=== PATIENT | male | born 1945 | race African-American/Black ===

== ENCOUNTER 2020-01-05 11:57 | Inpatient (IN) | payer MEDICARE, MEDICAID, OTHER ==
--- NOTE | 2020-01-05 12:51 | RAD ---
CHEST 1 VIEW: INDICATION: Cough, shortness of breath, and diarrhea. COMPARISON: None. FINDINGS: Lungs are clear. The heart size is accentuated by the exam technique. There is mild tortuosity of t he aorta. There are mild vascular calcifications of the aorta. No pleural effusion or pneumothorax is evident. No acute osseous abnormality is evident. IMPRESSION: No acute cardiopulmonary abnormality. POS: BH
[2020-01-05 13:02] LABS: #Eosinphils 0.2 thou/uL (0.0-0.7); #Lymphocytes 1.2 thou/uL (1.20-3.40); #Monocytes 0.7 thou/uL (0.11-0.59); #Neutrophils 3.4 thou/uL (1.40-6.50); %Basophils 0.9 % (0.0-1.0); %Eosinophils 3.5 % (0.0-10.0); %Lymphocytes 21.8 % (21.0-51.0); %Monocytes 12.1 % (0.0-10.0); %Neutrophils 61.7 % (42.0-75.0); Hemoglobin 15.3 g/dL (14.0-18.0); Mean Corpuscular Hemoglobin 32.2 pg (27.0-31.0); Mean Corpuscular Volume 97.4 fL (78.0-98.0); Mean Platelet Volume 9.5 fL (7.4-10.4); Platelet Count 182 thou/uL (130-400); RBC Distribution Width 11.8 % (11.5-14.5); Red Blood Cell (RBC) Count 4.76 mill/uL (4.70-6.10); White Blood Cell (WBC) Count 5.5 thou/uL (4.8-10.8)
[2020-01-05 13:28] LABS: ALT (SGPT) 9 U/L (8-55); AST (SGOT) 17 U/L (5-34); Albumin 4.1 g/dL (3.4-4.8); Alkaline Phosphatase 97 U/L (40-110); Anion Gap 11 mmol/L (10-20); BUN (Urea Nitrogen) 13 mg/dL (8.4-25.7); Bilirubin, Total 0.7 mg/dL (0.2-1.2); Calc. Creatinine Clearance 0 mL/min (70-130); Calcium 9.7 mg/dL (7.8-10.44); Carbon Dioxide 28 mmol/L (23-31); Chloride 103 mmol/L (98-107); Estimated GFR-MDRD 72; Glucose 91 mg/dL (83-110); Potassium 4.1 mmol/L (3.5-5.1); Protein, Total 7.1 g/dL (5.8-8.1); Sodium 138 mmol/L (136-145)
[2020-01-05] MEDS ORDERED: Nitroglycerin 2% Ointment 1 INCH/1 GM Packet ONE (14:22)
[2020-01-05] MEDS ORDERED: Aspirin Chewable 81 MG TAB ONE (14:22)
[2020-01-05 15:38] LABS: SARS-CoV-2 NAA Rapid Test Not Detected (NotDetected)
[2020-01-05 17:45] LABS: Troponin I 0.044 ng/mL (< 0.028)
[2020-01-05] MEDS ORDERED: Ondansetron ODT 4 MG TAB SL PRN (18:44)
[2020-01-05] MEDS ORDERED: Ondansetron PF 4 MG/2 ML Vial IVP PRN (18:44)
[2020-01-05] MEDS ORDERED: HYDROcodone/Acetaminophen 5/325 mg Tablet PO PRN ×2 (18:44)
[2020-01-05] MEDS ORDERED: Sodium Chloride 0.9% 1,000 ML IV SCH (18:44)
[2020-01-05] MEDS ORDERED: Acetaminophen 325 MG TAB PO PRN (18:44)
--- NOTE | 2020-01-05 19:19 | PDOC.HOSPP ---
- Subjective Encounter Date: 01/05/20 Encounter Time: 16:00 Subjective: This is a 75 year old male patient with history of hypertension who presented to the ER with chest pain that started yesterday. He states it is diffuse, worst when he lays down and better when he sits up and takes a deep breath. He describes the pain as a pressure like sensation that comes and goes. He has not taken anything to relieve the pain. He denies radiation to his arms. He denies pain with exertion or in association with eating. He denies diaphoresis, palpitations, but does report some lightheadedness/dizziness. He reports a sensation of chest congestion and feels that he is unable to cough up any phlegm and is clearing his throat constantly. He denies fevers or chills. He also complains of loose stools the past few days, per nurse he has had 3 Bowel movements today. He states he ate some bad food from [employer] and another fast food restaurant few days ago. He denies nausea or vomiting or abdominal pain. He reports relief with eating raw garlic cloves and honey and drinking garlic water. He has been smoking since age 18, but has cut down to a few cigarettes a day from a pack a day. He reports a stress test in the medical center years ago , but does not recall the results. - Objective Result Diagrams: 01/05/20 12:49 01/05/20 12:49 Hospitalist ROS - Review of Systems Constitutional: denies: fever, chills Eyes: denies: pain, vision change ENT: denies: ear discharge Respiratory: reports: cough, shortness of breath. denies: dry Cardiovascular: reports: chest pain Gastrointestinal: reports: diarrhea. denies: nausea, vomiting, abdominal pain Genitourinary: denies: dysuria, frequency Musculoskeletal: denies: neck pain, shoulder pain Skin: denies: rash, lesions - Exam General Appearance: NAD, awake alert Eye: PERRL, anicteric sclera ENT: normocephalic atraumatic, no oropharyngeal lesions Neck: no JVD Heart: no gallops, no rubs Heart - other findings: systolic murmur heard loudest left second intercostal space Respiratory: no wheezes, no rales, no ronchi Respiratory - other findings: slightly diminished at the bases Gastrointestinal: soft, non-tender, non-distended, normal bowel sounds Extremities: no cyanosis, no clubbing, no edema Skin: normal turgor, no rashes Neurological: cranial nerve grossly intact, normal sensation to touch Musculoskeletal: normal tone, normal strength, no muscle wasting Hosp A/P - Plan Chest X ray: normal This is a 75 year old male with past medical history of hypertension who presents with chest pain that started yesterday Chest pain - possibly secondary to ischemic heart disease vs GERD vs COPD/CHF - EKG shows ST depressions in lateral leads V4-V6, unclear if old or new. Troponins are mildly elevated. Patient has been given aspirin. Will order statin - hold off on beta-rhonda for now in case stress test to be performed - I will give one dose of therapeutic lovenox and have cardiology see patient tomorrow - continue nitro prn for chest pain - obtain BNP Hypertension - patient does not know his home medication - will monitor Code status: full code
[2020-01-05] MEDS ORDERED: Nitroglycerin 0.4 MG TAB (25 Tab Bottle) SL PRN (19:26)
--- NOTE | 2020-01-05 19:29 | PDOC.FMACP ---
Advance Care Planning - Note Participants: patient Summary: Advanced Care Planning was discussed. The diagnosis, prognosis and goals of care were discussed. Appropriate forms and documentation to accomplish the goals of care were discussed. All questions were answered. The Palliative Care Team will be engaged to assist with completion of any outstanding forms that are needed. Patient would like to be full code. Brother will be patient's HCP
[2020-01-05] MEDS ORDERED: Enoxaparin Sodium 80 MG/0.8 ML SYRINGE SC SCH (19:30)
[2020-01-05] MEDS: Atorvastatin Calcium 40 MG TAB PO SCH (20:58)
[2020-01-06 05:11] LABS: #Eosinphils 0.3 thou/uL (0.0-0.7); #Lymphocytes 1.6 thou/uL (1.20-3.40); #Monocytes 0.7 thou/uL (0.11-0.59); #Neutrophils 4.1 thou/uL (1.40-6.50); %Basophils 0.6 % (0.0-1.0); %Lymphocytes 23.3 % (21.0-51.0); %Monocytes 10.8 % (0.0-10.0); %Neutrophils 60.3 % (42.0-75.0); Hemoglobin 13.3 g/dL (14.0-18.0); Mean Corpuscular HGB CONC 32.5 g/dL (32.0-36.0); Mean Corpuscular Hemoglobin 31.3 pg (27.0-31.0); Mean Corpuscular Volume 96.3 fL (78.0-98.0); Mean Platelet Volume 9.6 fL (7.4-10.4); Platelet Count 175 thou/uL (130-400); RBC Distribution Width 11.6 % (11.5-14.5); Red Blood Cell (RBC) Count 4.27 mill/uL (4.70-6.10); White Blood Cell (WBC) Count 6.9 thou/uL (4.8-10.8)
[2020-01-06 05:32] LABS: Anion Gap 11 mmol/L (10-20); BUN (Urea Nitrogen) 11 mg/dL (8.4-25.7); Calc. Creatinine Clearance 78 mL/min (70-130); Calcium 8.9 mg/dL (7.8-10.44); Carbon Dioxide 23 mmol/L (23-31); Chloride 106 mmol/L (98-107); Estimated GFR-MDRD Greater than 90; Glucose 98 mg/dL (83-110); Potassium 3.8 mmol/L (3.5-5.1); Sodium 136 mmol/L (136-145)
[2020-01-06] MEDS: Aspirin 81 mg Enteric Coated Tablet PO SCH (07:36)
[2020-01-06] MEDS ORDERED: Communication Order-Pharmacy FS SCH (09:15)
[2020-01-06] MEDS ORDERED: Etodolac ER 400 mg Tablet PO SCH (09:30)
[2020-01-06] MEDS: Enoxaparin Sodium 80 MG/0.8 ML SYRINGE SC SCH ×2 (09:53→21:55)
--- NOTE | 2020-01-06 10:22 | CON ---
DATE OF CONSULTATION: 01/06/2020 REASON FOR CONSULTATION: Chest pain with elevation of troponins into the indeterminate range. HISTORY OF PRESENT ILLNESS: Mr. Braxton is a very pleasant 75-year-old gentleman, who has been having chest discomfort for several days. He has two different varieties of chest discomfort. One is a feeling of discomfort when he lays down flat and gets better when he sits up. However, he also has another sensation when he tries to walk. He indicates that about a block or less, he will get "tiredness" in his chest and he has to slow down and stop. The patient has a positive family history of heart disease in mother and father. He has history of smoking, unknown cholesterol status. He has history of hypertension. MEDICATIONS AT HOME: Apparently not taking anything routinely, although there was some history of hypertension. REVIEW OF SYSTEMS: CONSTITUTIONAL: No significant weight gain or loss. VISION: No changes. HEARING: No changes. PULMONARY: He also has a cough. CARDIAC: As outlined above. GASTROINTESTINAL: No nausea, vomiting, or diarrhea. SKIN: No rashes. NEUROLOGIC: No unilateral weakness or numbness. PSYCHIATRIC: No unusual depression or anxiety. FAMILY HISTORY: As mentioned. SOCIAL HISTORY: Smokes a few cigarettes per day. PHYSICAL EXAMINATION: GENERAL: This is a pleasant 75-year-old gentleman, alert and oriented. VITAL SIGNS: Blood pressure 149/72 and pulse 86, sinus on the monitor. HEENT: Eyes; sclerae are nonicteric. Mouth, mucous membranes moist. NECK: Supple. No lymphadenopathy. LUNGS: Clear. CARDIAC: Normal S1. Normal S2. There is a 3/6 systolic murmur at the left upper sternal border, radiates to the right upper sternal border in the apex. ABDOMEN: Soft, nontender. EXTREMITIES: Warm, dry. No clubbing or cyanosis. No edema. He has good peripheral pulses in his dorsalis pedis and posterior tibial. PERTINENT LABORATORY DATA: The troponin peak was 0.050. COVID test was negative. EKG shows some T-wave inversions in the lateral leads. ASSESSMENT: 1. Chest pain. Two different varieties, one sounds like it is probably pericardial, but he also has another component this sounds exertional with angina. 2. Cardiac murmur. 3. It sounds like he has some aortic valve component. 4. Hypertension. 5. Smoking. 6. Unknown cholesterol status. PLAN: 1. We will start anti-inflammatories with ibuprofen. We will start low-dose colchicine, increase dose if tolerated from a GI standpoint. 2. Echocardiogram. 3. Recommend cardiac catheterization tomorrow. Discussed risk of stroke, heart attack, iodine allergy, loss of blood supply to leg or kidney resulting in loss of limb or renal function. The additional risk of stenting including vessel perforation, stent thrombosis, stent restenosis were all discussed. He understands and wishes to proceed. Job ID: [id number]
--- NOTE | 2020-01-06 10:24 | PDOC.HOSPP ---
- Subjective Encounter Date: 01/06/20 Encounter Time: 10:17 Subjective: painis epigastricconly lying supine and with breathing - Objective Vital Signs & Weight: Vital Signs (12 hours) Temp Pulse Resp BP BP Pulse Ox 01/06/20 07:40 98.8 F 87 19 149/72 H 99 01/06/20 04:00 98.3 F 75 16 119/64 96 Weight Weight 169 lb 11.2 oz I&O: 01/05/20 01/06/20 01/07/20 06:59 06:59 06:59 Intake Total 1600 Balance 1600 Result Diagrams: 01/06/20 04:49 01/06/20 04:49 Hospitalist ROS - Medication Medications: Active Medications Generic Name Dose Route Start Last Admin Trade Name Yahir PRN Reason Stop Dose Admin Aspirin 81 mg 01/06/20 09:00 01/06/20 07:36 Ecotrin PO 81 mg DAILY RIKY Administration Atorvastatin Calcium 40 mg 01/05/20 21:00 01/05/20 20:58 Lipitor PO 40 mg HS RIKY Administration Enoxaparin Sodium 80 mg 01/06/20 09:00 01/06/20 09:53 Lovenox SC 80 mg 0900,2100 RIKY Administration Sodium Chloride 10 ml 01/05/20 21:00 01/06/20 07:37 Flush - Normal Saline IVF 10 ml Q12HR RIKY Administration - Exam General Appearance: awake alert Neck: no JVD Heart: RRR, no murmur Respiratory: CTAB Gastrointestinal: soft, non-tender, normal bowel sounds Extremities: no edema Hosp A/P (1) Chest pain Code(s): R07.9 - CHEST PAIN, UNSPECIFIED Status: Acute Qualifiers: Chest pain type: unspecified Qualified Code(s): R07.9 - Chest pain, unspecified (2) HTN (hypertension) Code(s): I10 - ESSENTIAL (PRIMARY) HYPERTENSION Status: Chronic Qualifiers: Hypertension type: essential hypertension Qualified Code(s): I10 - Essential (primary) hypertension (3) Elevated troponin I level Code(s): R79.89 - OTHER SPECIFIED ABNORMAL FINDINGS OF BLOOD CHEMISTRY Status : Acute - Plan troponin 0.04+/_atypical to late for stress test.patient had breakfast will schedule stress,discuss with cardiology
[2020-01-06] MEDS: Colchicine 0.6 MG TAB PO SCH ×2 (10:46→21:55)
--- NOTE | 2020-01-06 15:34 | PDOC.EVN ---
Event Note - Event Note Event Note: cardiac cath 01/[address] Arrington
[2020-01-06] MEDS ORDERED: predniSONE 20 MG TAB PO SCH (20:00)
[2020-01-06] MEDS: Atorvastatin Calcium 40 MG TAB PO SCH (21:56)
--- NOTE | 2020-01-06 23:57 | PDOC.HHP ---
Hospitalist HPI - History of Present Illness chest pain History of Present Illness: Note: this is from 01/05, H and P accidentally entered as progress note This is a 75 year old male patient with history of hypertension who presented to the ER with chest pain that started yesterday. He states it is diffuse, worst when he lays down and better when he sits up and takes a deep breath. He describes the pain as a pressure like sensation that comes and goes. He has not taken anything to relieve the pain. He denies radiation to his arms. He denies pain with exertion or in association with eating. He denies diaphoresis, palpitations, but does report some lightheadedness/dizziness. He reports a sensation of chest congestion and feels that he is unable to cough up any phlegm and is clearing his throat constantly. He denies fevers or chills. He also complains of loose stools the past few days, per nurse he has had 3 Bowel movements today. He states he ate some bad food from [employer] and another fast food restaurant few days ago. He denies nausea or vomiting or abdominal pain. He reports relief with eating raw garlic cloves and honey and drinking garlic water. He has been smoking since age 18, but has cut down to a few cigarettes a day from a pack a day. He reports a stress test in the [facility] center years ago , but does not recall the results. ED Course: THe patient presented to the ER with a BP of 178 systolic, rest of vitals were normal. CBC and BMP were unremarkable. Troponin was mildly elevated at 0.035. CHest X ray was normal. EKG showed T wave inversions in the lateral leads. Patient was given aspirin, nitro and 500 ml IV fluid and admitted for further workup. Hospitalist ROS - Review of Systems Constitutional: denies: fever, chills Eyes: denies: pain, vision change Respiratory: reports: shortness of breath. denies: cough (intermittent with throat clearing) Cardiovascular: reports: palpitations. denies: chest pain Gastrointestinal: reports: diarrhea Genitourinary: reports: dysuria, frequency Musculoskeletal: denies: neck pain, shoulder pain Skin: reports: rash, lesions Neurological: denies: weakness, numbness - Medication Medications: Active Medications Generic Name Dose Route Start Last Admin Trade Name Freq PRN Reason Stop Dose Admin Aspirin 81 mg 01/06/20 09:00 01/06/20 07:36 Ecotrin PO 81 mg DAILY RIKY Administration Atorvastatin Calcium 40 mg 01/05/20 21:00 01/06/20 21:56 Lipitor PO 40 mg HS RIKY Administration Colchicine 0.3 mg 01/06/20 09:08 01/06/20 21:55 Colchicine PO 0.3 mg BID RIKY Administration Enoxaparin Sodium 80 mg 01/06/20 09:00 01/06/20 21:55 Lovenox SC 80 mg 0900,2100 RIKY Administration Sodium Chloride 10 ml 01/05/20 21:00 01/06/20 21:56 Flush - Normal Saline IVF 10 ml Q12HR RIKY Administration Hospitalist History - Past Medical History Cardiac: reports: HTN - Past Surgical History Other Surgical History: PMH: Hypertension Past Surgical history: none Social history: patient has smoked from [age]. Smoked one pack a day, reduced to 3 cigarettes daily. No alcohol use, cocaine use, heroin use. He is retired. Brother is a monomer recovery operator. - Family History Other Family History: Family history: both parents had heart disease Allergies: none Medications: patient takes one BP med, but does not know the name of it - Social History Smoking Status: Current every day smoker (smokes 3 cigarettes daily, down from a pack a day, smoking since age of 18) Alcohol: reports: None Drugs: reports: none Living Situation: With Family, Other ( is for past 8 years) - Exam General Appearance: NAD, awake alert Eye: PERRL, anicteric sclera ENT: normocephalic atraumatic, no oropharyngeal lesions Neck: no JVD Heart: RRR Heart - other findings: systolic murmur left second intercostal space Respiratory: CTAB, no wheezes, no rales Gastrointestinal: soft, non-tender, non-distended, normal bowel sounds Extremities: no cyanosis, no clubbing, no edema Skin: normal turgor, no lesions, no rashes Neurological: cranial nerve grossly intact, normal sensation to touch, no focal deficits, no new deficit Musculoskeletal: normal tone, normal strength, no muscle wasting Psychiatric: normal affect, normal behavior, A&O x 3 Hospitalist Results - Labs Result Diagrams: 01/06/20 04:49 01/06/20 04:49 Lab results: WBC 6.9 thou/uL (4.8-10.8) 01/06/20 04:49 Hgb 13.3 g/dL (14.0-18.0) L 01/06/20 04:49 Hct 41.1 % (42.0-52.0) L 01/06/20 04:49 MCV 96.3 fL (78.0-98.0) 01/06/20 04:49 Plt Count 175 thou/uL (130-400) 01/06/20 04:49 Neutrophils % 60.3 % (42.0-75.0) 01/06/20 04:49 Sodium 136 mmol/L (136-145) 01/06/20 04:49 Potassium 3.8 mmol/L (3.5-5.1) 01/06/20 04:49 Chloride 106 mmol/L (98-107) 01/06/20 04:49 Carbon Dioxide 23 mmol/L (23-31) 01/06/20 04:49 BUN 11 mg/dL (8.4-25.7) 01/06/20 04:49 Creatinine 0.92 mg/dL (0.7-1.3) 01/06/20 04:49 Glucose 98 mg/dL (83-110) 01/06/20 04:49 Calcium 8.9 mg/dL (7.8-10.44) 01/06/20 04:49 Total Bilirubin 0.7 mg/dL (0.2-1.2) 01/05/20 12:49 AST 17 U/L (5-34) 01/05/20 12:49 ALT 9 U/L (8-55) 01/05/20 12:49 Alkaline Phosphatase 97 U/L (40-110) 01/05/20 12:49 CK-MB (CK-2) 2.0 ng/mL (0-6.6) 01/05/20 12:49 Troponin I 0.050 ng/mL (< 0.028) H 01/05/20 19:59 B-Natriuretic Peptide 210.2 pg/mL (0-100) H 01/05/20 19:59 Serum Total Protein 7.1 g/dL (5.8-8.1) 01/05/20 12:49 Albumin 4.1 g/dL (3.4-4.8) 01/05/20 12:49 - EKG Interpretation EKG: T wave inversions lateral leads Hospitalist H&P A/P - Plan Plan: Chest X ray: normal This is a 75 year old male with past medical history of hypertension who presents with chest pain that started yesterday Chest pain - possibly secondary to ischemic heart disease vs GERD vs COPD/CHF - EKG shows T wave inversions in lateral leads V4-V6, unclear if old or new. Troponins are mildly elevated. Patient has been given aspirin. Will order statin - hold off on beta-rhonda for now in case stress test to be performed - I will give one dose of therapeutic lovenox and have cardiology see patient tomorrow - continue nitro prn for chest pain - obtain BNP Hypertension - patient does not know his home medication - will monitor Systolic murmur - obtain ECHO Diet: NPO after midnight Code status: full code
[2020-01-07] MEDS: Aspirin 81 mg Enteric Coated Tablet PO SCH (05:36)
[2020-01-07] MEDS: Sodium Chloride 0.9% 1,000 ML IV SCH ×2 (05:37→21:51)
[2020-01-07] MEDS: Colchicine 0.6 MG TAB PO SCH ×2 (05:37→21:50)
[2020-01-07] MEDS ORDERED: Diazepam 5 MG TAB PO SCH (06:00)
[2020-01-07] MEDS ORDERED: Etodolac ER 400 mg Tablet PO SCH (09:00)
[2020-01-07] MEDS ORDERED: Midazolam HCl 2 mg/2 ml Vial ONE (10:07)
[2020-01-07] MEDS ORDERED: Fentanyl 100 MCG/2 ML VIAL ONE (10:07)
[2020-01-07] MEDS ORDERED: Metoprolol Tartrate 5 MG/5 ML VIAL ONE (10:07)
[2020-01-07] MEDS ORDERED: Sodium Chloride 0.9% 200 ML IV PRN (11:04)
[2020-01-07] MEDS ORDERED: Nitroglycerin 0.4 MG TAB (25 Tab Bottle) SL PRN (11:04)
[2020-01-07] MEDS ORDERED: Iopamidol-370 76% 500 ML 1 ML ONE (11:27)
[2020-01-07] MEDS ORDERED: Iopamidol 370 76% 100 ML VIAL ONE (11:46)
--- NOTE | 2020-01-07 11:49 | PDOC.HOSPP ---
- Subjective Encounter Date: 01/07/20 Encounter Time: 11:45 Subjective: f/u for CP and s/p cardiac cath showing multivessel CAD with recommendations for CABG and AVR. No new complaints currently. - Objective Vital Signs & Weight: Vital Signs (12 hours) Temp Pulse Resp BP Pulse Ox 01/07/20 07:45 99.0 F 85 16 151/73 H 96 01/07/20 04:00 98.2 F 91 14 152/94 H 98 Weight Weight 169 lb 11.2 oz I&O: 01/06/20 01/07/20 01/08/20 06:59 06:59 06:59 Intake Total 1600 1300 Balance 1600 1300 Result Diagrams: 01/06/20 04:49 01/06/20 04:49 Additional Labs: Laboratory Tests 01/05/20 01/05/20 01/05/20 12:49 14:20 17:12 Troponin I 0.035 H 0.044 H B-Natriuretic Peptide SARS-CoV-2 Rap RNA(RT-PCR) Not Detected 01/05/20 01/05/20 19:59 19:59 Troponin I 0.050 H B-Natriuretic Peptide 210.2 H SARS-CoV-2 Rap RNA(RT-PCR) Radiology Reviewed by me: Yes (Echo - EF 50-55%, mod , mod AI, TR) EKG Reviewed by me: Yes (Tele - SR) Hospitalist ROS - Medication Medications: Active Medications Generic Name Dose Route Start Last Admin Trade Name Freq PRN Reason Stop Dose Admin Aspirin 81 mg 01/06/20 09:00 01/07/20 05:36 Ecotrin PO 81 mg DAILY RIKY Administration Atorvastatin Calcium 40 mg 01/05/20 21:00 01/06/20 21:56 Lipitor PO 40 mg HS RIKY Administration Colchicine 0.3 mg 01/06/20 09:08 01/07/20 05:37 Colchicine PO 0.3 mg BID RIKY Administration Sodium Chloride 1,000 mls @ 75 mls/hr 01/07/20 06:00 01/07/20 05:37 Normal Saline 0.9% IV 1,000 mls .[id number] RIKY Administration Sodium Chloride 10 ml 01/05/20 21:00 01/06/20 21:56 Flush - Normal Saline IVF 10 ml Q12HR RIKY Administration - Exam General Appearance: NAD, awake alert Eye: PERRL, anicteric sclera ENT: normocephalic atraumatic, no oropharyngeal lesions Neck: supple, symmetric, no JVD, no thyromegaly, no lymphadenopathy Heart: RRR, no gallops, no rubs, normal peripheral pulses, II/IV Heart - other findings: S1, S2 Respiratory: CTAB, no wheezes, no rales, no ronchi, normal chest expansion Gastrointestinal: soft, non-tender, non-distended, normal bowel sounds, no palpable masses Extremities: no cyanosis, no clubbing, no edema Skin: normal turgor, no lesions Neurological: cranial nerve grossly intact, no new deficit Musculoskeletal: normal tone, normal strength Psychiatric: normal affect, A&O x 3 Hosp A/P (1) NSTEMI (non-ST elevated myocardial infarction) Code(s): I21.4 - NON-ST ELEVATION (NSTEMI) MYOCARDIAL INFARCTION Status: Acute Plan: Type II SD, see below for mgmt (2) CAD (coronary artery disease) Code(s): I25.10 - ATHSCL HEART DISEASE OF [place] CORONARY ARTERY W/O ANG PCTRS Status: Chronic Plan: 3v CAD, plan for CABG, continue ASA/Lipitor (3) Aortic stenosis Code(s): I35.0 - NONRHEUMATIC AORTIC (VALVE) STENOSIS Status: Chronic Plan: ? AVR, await CT surgery evaluation (4) Tobacco abuse Code(s): Z72.0 - TOBACCO USE Status: Chronic Plan: Tobacco cessation counseling/resources (5) HTN (hypertension) Code(s): I10 - ESSENTIAL (PRIMARY) HYPERTENSION Status: Chronic Qualifiers: Hypertension type: essential hypertension Qualified Code(s): I10 - Essential (primary) hypertension - Plan out of bed/ambulate, DVT proph w/SCDs Stable currently Continue ASA Continue Lipitor CT surgical consult pending Tobacco cessation resources Carotid sono/CTA chest pending
[2020-01-07] MEDS ORDERED: Diazepam 5 MG TAB PO PRN (13:13)
[2020-01-07] MEDS ORDERED: Communication Order-Pharmacy FS SCH (13:13)
[2020-01-07] MEDS ORDERED: Vancomycin 1.5 GRAM/300 ML BAG 1.5 GM in Premix Bag 1 BAG IVPB SCH (14:30)
--- NOTE | 2020-01-07 15:22 | CON ---
DATE OF CONSULTATION: REASON FOR CONSULTATION: Evaluate for AVR/CABG. HISTORY OF PRESENT ILLNESS: Mr. Braxton is a 75-year-old gentleman, who has been having chest pain and shortness of breath. He got to the point where he could not lay flat anymore and came to the hospital. He has not taken any medications at home recently and was brought in the hospital for further evaluation. PAST MEDICAL HISTORY: 1. Aortic stenosis. 2. Coronary artery disease. 3. Tobacco abuse. 4. Hypertension. PAST SURGICAL HISTORY: None. CURRENT MEDICATIONS: None. ALLERGIES: NONE. SOCIAL HISTORY: He smokes less than a pack of cigarettes a day. REVIEW OF SYSTEMS: 10-point review of systems is performed and negative except as stated above. PHYSICAL EXAMINATION: GENERAL: A well-developed, well-nourished male, resting comfortably in bed. VITAL SIGNS: Height is 6 feet, weight is 169 pounds. BSA is 1.98. Temperature is 99.0, pulse is 85 and regular, and blood pressure 151/73. HEENT: Sclerae nonicteric. Pupils are equal and round bilaterally. NECK: Supple. There are soft carotid bruits bilaterally. CHEST: Clear bilaterally. HEART: Rhythm is regular. He has a soft systolic ejection murmur heard in the right precordium. ABDOMEN: Soft and nontender. EXTREMITIES: No edema. VASCULAR: Palpable carotid, radial, femoral, dorsalis pedis pulses bilaterally. VENOUS: There are no venous varicosities or venous stasis changes. LABORATORY DATA: The patient underwent cardiac catheterization today revealing three-vessel disease. There are critical lesions in his LAD and the first diagonal branch. He also has a 70% stenosis in the circumflex. Echocardiogram has been performed, which shows an ejection fraction of 50% to 55%. His aortic valve velocity is 268. The gradient across his aortic valve is 29 mmHg with a mean gradient of 20. Aortic valve area is not recorded. Aortic valve is calcified and has moderate insufficiency in addition. Chest x-ray shows no dominant lung mass with normal expanded lungs bilaterally. ASSESSMENT AND PLAN: A very pleasant 75-year-old gentleman, who has three-vessel coronary artery disease and [id number] aortic stenosis. I have discussed aortic valve replacement utilizing a bioprosthetic valve and coronary artery bypass grafting x3 with mammary artery to left anterior descending, saphenous vein graft to diagonal and obtuse marginal. He is agreeable to proceed. We will check a CT of the chest and a carotid ultrasound to make plans for surgery on Tuesday. Job ID: [id number]
[2020-01-07] MEDS: Enoxaparin Sodium 80 MG/0.8 ML SYRINGE SC SCH (15:40)
--- NOTE | 2020-01-07 17:09 | CT ---
CT ANGIOGRAM THORAX WITH IV CONTRAST AND 3-D RECONSTRUCTIONS CLINICAL INDICATION: Preoperative evaluation prior to aortic valve replacement. COMPARISON: None FINDINGS: Pulmonary arteries: No filling defects seen to suggest a pulmonary embolus. Aorta: Normal in caliber without evidence of an aortic dissection. Vascular calcifications are seen s cattered in the thoracic aorta. Calcifications aortic valve are noted. Lungs: There is dependent atelectasis at each lung base. No consolidation or pleural fluid is seen. Mediastinum: There is no evidence of lymphadenopathy. Calcifications coronary arteries are present. Thyroid gland: Normal CT appearance where visualized. Osseous structures: Degenerative changes are seen in the thoracic spine Chest wall: No abnormality visualized. Upper abdomen: Within normal limits for phase of imaging. IMPRESSION: 1. No CT evidence of a pulmonary embolus. 2. Thoracic aorta is normal in caliber without aortic dissection. Vascular calcifications are seen in the region of the aortic valve.
--- NOTE | 2020-01-07 17:23 | ULT ---
ULTRASOUND DOPPLER DUPLEX CAROTID: DATE: 01/07/2020 HISTORY: 75-year-old male with carotid stenosis. TECHNIQUE: Grayscale, color-flow, and spectral analysis, of major arteries of neck. FINDINGS: RIGHT: Atherosclerotic plaque:Moderate at carotid bulb extending into proximal internal carotid. Peak systolic and end diastolic velocities: CCA:60 cm/s, 5 cm/s ICA:50 cm/s, 14 cm/s ICA/CCA ratio:0.9 Vertebral artery flow:Antegrade LEFT: Atherosclerotic plaque:Mild at carotid bulb and proximal internal carotid. Peak systolic and end diastolic velocities: CCA:65 cm/s, 10 cm/s ICA:40 cm/s, 15 cm/s ICA/CCA ratio:0.6 Vertebral artery flow:Antegrade IMPRESSION: Atherosclerosis of proximal internal carotid arteries. No evidence of hemodynamically significant stenosis.
[2020-01-07] MEDS: Atorvastatin Calcium 40 MG TAB PO SCH (21:50)
[2020-01-08] MEDS: Colchicine 0.6 MG TAB PO SCH ×2 (08:28→21:46)
[2020-01-08] MEDS: Aspirin 81 mg Enteric Coated Tablet PO SCH (08:28)
[2020-01-08] MEDS: Sodium Chloride 0.9% 1,000 ML IV SCH ×2 (08:30→12:51)
--- NOTE | 2020-01-08 16:52 | PDOC.HOSPP ---
- Subjective Encounter Date: 01/08/20 Encounter Time: 16:30 Subjective: f/u for 3v CAD with plans for CABG and AVR in am. No new complaints currently. - Objective Vital Signs & Weight: Vital Signs (12 hours) Temp Pulse Resp BP Pulse Ox 01/08/20 11:41 98.4 F 80 16 151/86 H 92 L 01/08/20 08:25 98.8 F 86 14 169/87 H 96 01/08/20 08:00 96 Weight Weight 169 lb 11.2 oz I&O: 01/07/20 01/08/20 01/09/20 06:59 06:59 06:59 Intake Total 1300 1700 Balance 1300 1700 Result Diagrams: 01/06/20 04:49 01/06/20 04:49 Additional Labs: Laboratory Tests 01/05/20 01/05/20 01/05/20 12:49 14:20 17:12 Troponin I 0.035 H 0.044 H B-Natriuretic Peptide SARS-CoV-2 Rap RNA(RT-PCR) Not Detected 01/05/20 01/05/20 19:59 19:59 Troponin I 0.050 H B-Natriuretic Peptide 210.2 H SARS-CoV-2 Rap RNA(RT-PCR) Radiology Reviewed by me: Yes (Carotid sono - no significant stenosis) EKG Reviewed by me: Yes (Tele - SR) Hospitalist ROS - Medication Medications: Active Medications Generic Name Dose Route Start Last Admin Trade Name Freq PRN Reason Stop Dose Admin Aspirin 81 mg 01/06/20 09:00 01/08/20 08:28 Ecotrin PO 81 mg DAILY RIKY Administration Atorvastatin Calcium 40 mg 01/05/20 21:00 01/07/20 21:50 Lipitor PO 40 mg HS RIKY Administration Colchicine 0.3 mg 01/06/20 09:08 01/08/20 08:28 Colchicine PO 0.3 mg BID RIKY Administration Sodium Chloride 1,000 mls @ 75 mls/hr 01/07/20 06:00 01/08/20 12:51 Normal Saline 0.9% IV 1,000 mls .[id number] RIKY Administration Sodium Chloride 10 ml 01/05/20 21:00 01/08/20 08:10 Flush - Normal Saline IVF Not Given Q12HR RIKY - Exam General Appearance: NAD, awake alert Eye: PERRL, anicteric sclera ENT: normocephalic atraumatic, no oropharyngeal lesions Neck: supple, symmetric, no JVD, no thyromegaly, no lymphadenopathy Heart: RRR, no gallops, no rubs, normal peripheral pulses Heart - other findings: S1, S2 Respiratory: CTAB, no wheezes, no rales, no ronchi, normal chest expansion Gastrointestinal: soft, non-tender, non-distended, normal bowel sounds, no palpable masses Extremities: no cyanosis, no clubbing, no edema Skin: normal turgor, no lesions Neurological: cranial nerve grossly intact, no new deficit Musculoskeletal: normal tone, normal strength Psychiatric: normal affect, A&O x 3 Hosp A/P (1) NSTEMI (non-ST elevated myocardial infarction) Code(s): I21.4 - NON-ST ELEVATION (NSTEMI) MYOCARDIAL INFARCTION Status: Acute Plan: See below, continue ASA/Lipitor/Nitro (2) CAD (coronary artery disease) Code(s): I25.10 - ATHSCL HEART DISEASE OF [place] CORONARY ARTERY W/O ANG PCTRS Status: Chronic Plan: See above, plan for CABG in am (3) Aortic stenosis Code(s): I35.0 - NONRHEUMATIC AORTIC (VALVE) STENOSIS Status: Chronic Plan: Plan for bioprosthetic AVR in am (4) Tobacco abuse Code(s): Z72.0 - TOBACCO USE Status: Chronic (5) HTN (hypertension) Code(s): I10 - ESSENTIAL (PRIMARY) HYPERTENSION Status: Chronic Qualifiers: Hypertension type: essential hypertension Qualified Code(s): I10 - Essential (primary) hypertension - Plan social services coordinator, out of bed/ambulate, DVT proph w/SCDs Stable currently Continue ASA Continue Lipitor CT surgical consult appreciated Plan for CABG/AVR in am Tobacco cessation resources
[2020-01-08] MEDS: Atorvastatin Calcium 40 MG TAB PO SCH (21:44)
[2020-01-09] MEDS ORDERED: EPINEPHrine 1 MG/ML AMP ONE (06:33)
[2020-01-09] MEDS ORDERED: Bupivacaine PF 0.5% 30 ML VIAL ONE (06:33)
[2020-01-09] MEDS ORDERED: Albumin 5% 500 ML ONE (06:33)
[2020-01-09] MEDS ORDERED: Midazolam HCl 5 mg/5 ml Vial ONE (06:36)
[2020-01-09] MEDS ORDERED: Midazolam HCl 2 mg/2 ml Vial ONE (06:36)
[2020-01-09] MEDS ORDERED: Fentanyl 100 MCG/2 ML VIAL ONE (06:36)
[2020-01-09] MEDS ORDERED: Vecuronium 10 MG VIAL ONE ×2 (06:37→09:20)
[2020-01-09] MEDS ORDERED: Dexmedetomidine 200 MCG/2 ML VIAL ONE (06:37)
[2020-01-09] MEDS ORDERED: Heparin 10,000 UNITS/1 ML VIAL 30,000 UNITS in Sodium Chloride 0.9% 1,000 ML FS SCH (06:45)
[2020-01-09] MEDS ORDERED: Vancomycin 1.5 GRAM/300 ML BAG ONE (07:01)
[2020-01-09] MEDS ORDERED: CEFAZOLIN 1 GM VIAL SLOW IVP SCH (07:30)
[2020-01-09] MEDS ORDERED: Sodium Chloride 0.9% 10 ML ONE (07:35)
[2020-01-09] MEDS ORDERED: Papaverine 60 MG/2 ML VIAL ONE (09:20)
[2020-01-09] MEDS ORDERED: Esmolol 100 MG/10 ML VIAL ONE (09:20)
[2020-01-09] MEDS ORDERED: Aminocaproic Acid 5 GM/20 ML VIAL ONE (09:20)
[2020-01-09] MEDS ORDERED: Lidocaine 2% PF 5 ML VIAL ONE (09:20)
[2020-01-09] MEDS ORDERED: Ondansetron PF 4 MG/2 ML Vial ONE (09:20)
[2020-01-09] MEDS ORDERED: Lidocaine 1% PF 5 ML VIAL ONE ×2 (09:20)
[2020-01-09] MEDS ORDERED: Thrombin 5000 UNITS/5 ML VIAL ONE (09:20)
[2020-01-09] MEDS ORDERED: Glycopyrrolate 0.2 MG/ML 5 ML SYRINGE ONE (09:20)
[2020-01-09] MEDS ORDERED: Heparin 5,000 UNITS/ML VIAL ONE (09:20)
[2020-01-09] MEDS ORDERED: Protamine Sulfate 250 MG/25 ML VIAL ONE (09:20)
[2020-01-09] MEDS ORDERED: Calcium Chloride 1 GM/10 ML Abboject SYRINGE ONE (09:20)
[2020-01-09] MEDS ORDERED: Magnesium Sulfate 1 GM/2 ML VIAL ONE (09:20)
[2020-01-09] MEDS ORDERED: Ketorolac Tromethamine 30 MG/ML VIAL ONE (09:20)
[2020-01-09] MEDS ORDERED: Potassium Chloride 60 MEQ/30 ML VIAL ONE (09:20)
[2020-01-09] MEDS ORDERED: Nitroglycerin 50 MG/250 ML BOT ONE (09:20)
[2020-01-09] MEDS ORDERED: PHENYLEPHRINE-NS 100 MCG/ML 10 ML SYRINGE ONE (09:20)
[2020-01-09] MEDS ORDERED: Cardioplegic Soln 1,000 ML BAG ONE (09:20)
[2020-01-09] MEDS ORDERED: Sodium Bicarb 50 MEQ/50 ML Abboject 8.4% SYRINGE ONE (09:20)
[2020-01-09] MEDS ORDERED: Heparin 30,000 units/30 ml VIAL ONE (09:20)
[2020-01-09] MEDS ORDERED: Insulin Regular 300 UNITS/3 ML VIAL ONE (09:51)
[2020-01-09] MEDS ORDERED: Promethazine HCl 25 MG/ML VIAL IM PRN (11:41)
[2020-01-09] MEDS ORDERED: Bisacodyl 10 MG SUPP PR PRN (11:41)
[2020-01-09] MEDS ORDERED: Ondansetron PF 4 MG/2 ML Vial IVP PRN (11:41)
[2020-01-09] MEDS ORDERED: Norepinephrine 8 MG/0.9% NS 250 ML IVPB PRN (11:41)
[2020-01-09] MEDS ORDERED: Bisacodyl 5 MG TAB PO PRN (11:41)
[2020-01-09] MEDS ORDERED: Hetastarch 6% 500 ML 500 ML IVPB PRN (11:41)
[2020-01-09] MEDS ORDERED: Mag-Al 1200 mg/1200 mg/30 ML UDCUP PO PRN (11:41)
[2020-01-09] MEDS ORDERED: Morphine 2 MG/ML VIAL SLOW IVP PRN (11:41)
[2020-01-09] MEDS ORDERED: Nitroglycerin 50 MG/250 ML BOT 250 ML IVPB PRN (11:41)
[2020-01-09] MEDS ORDERED: Guaifenesin DM 100-10/5 ML UDCUP PO PRN (11:41)
[2020-01-09] MEDS ORDERED: Fentanyl 100 MCG/2 ML VIAL SLOW IVP PRN ×2 (11:41)
[2020-01-09] MEDS ORDERED: Acetaminophen 325 MG TAB PO PRN (11:41)
[2020-01-09] MEDS ORDERED: Magnesium 2 GM/50 ML 2 GM in Premix Bag 1 BAG IVPB SCH (11:45)
[2020-01-09 12:00] LABS: #Eosinphils 0.1 thou/uL (0.0-0.7); #Lymphocytes 1.2 thou/uL (1.20-3.40); #Monocytes 1.2 thou/uL (0.11-0.59); #Neutrophils 11.7 thou/uL (1.40-6.50); %Basophils 0.1 % (0.0-1.0); %Eosinophils 0.9 % (0.0-10.0); %Lymphocytes 8.6 % (21.0-51.0); %Monocytes 8.2 % (0.0-10.0); %Neutrophils 82.2 % (42.0-75.0); Hemoglobin 12.3 g/dL (14.0-18.0); Mean Corpuscular HGB CONC 32.6 g/dL (32.0-36.0); Mean Corpuscular Hemoglobin 31.7 pg (27.0-31.0); Mean Corpuscular Volume 97.2 fL (78.0-98.0); Mean Platelet Volume 9.4 fL (7.4-10.4); Platelet Count 130 thou/uL (130-400); RBC Distribution Width 11.4 % (11.5-14.5); Red Blood Cell (RBC) Count 3.88 mill/uL (4.70-6.10); White Blood Cell (WBC) Count 14.3 thou/uL (4.8-10.8)
--- NOTE | 2020-01-09 12:06 | RAD ---
Chest AP view INDICATION: Status post open-heart surgery COMPARISON: Chest radiograph dated January 05, 2020 FINDINGS: Lungs: There is been interval development of a large left pneumothorax. Cardiac silhouette: There is mild cardiomegaly. There is been an interval midline sternotomy. There are midline mediastinal drains. There is a new aortic valvular prosthesis. Pulmonary vasculature: Normal Pleural spaces: No pleural effusion or pneumothorax is demonstrated. Upper abdomen: No abnormality seen. Osseous structures: No acute osseous abnormality. Additional findings: Right subclavian central venous catheter. IMPRESSION: Large left pneumothorax. Postoperative change of an aortic valvular prosthetic placement. Right subclavian central venous catheter and midline mediastinal drains. Findings called to Padmini Armstrong RN at 12:04 PM on January 09, 2020
[2020-01-09 12:08] LABS: INR-International Normal Ratio 1.5; Prothrombin Time 17.8 sec (12.0-14.7)
[2020-01-09] MEDS ORDERED: Lidocaine 1% (PF) 30 ML VIAL ONE ×2 (12:16→12:17)
[2020-01-09 12:19] LABS: Actual Bicarbonate (HCO3a) 21.6 mEq/L (22-28); Base Excess (BEa) -3.6 mEq/L (-2.0 to +3.0); Hemoglobin (Hb) 11.8 g/dL (14.0-18.0); O2 Tension (PaO2), arterial 69.2 mmHg (> 70.0); pH, Arterial 7.35 (7.35-7.45)
[2020-01-09] MEDS ORDERED: HUMULIN R 100 UNITS in Sodium Chloride 0.9% 100 ML IVPB SCH (12:23)
[2020-01-09] MEDS ORDERED: Dextrose 50% Abboject 50 ML SYRINGE SLOW IVP PRN (12:23)
[2020-01-09] MEDS ORDERED: Dextrose 5% in Water 1,000 ML IV PRN (12:23)
[2020-01-09] MEDS ORDERED: Insulin Regular 300 UNITS/3 ML VIAL SC PRN (12:23)
[2020-01-09 12:28] LABS: Anion Gap 12 mmol/L (10-20); BUN (Urea Nitrogen) 14 mg/dL (8.4-25.7); Calc. Creatinine Clearance 87 mL/min (70-130); Calcium 7.2 mg/dL (7.8-10.44); Carbon Dioxide 22 mmol/L (23-31); Chloride 109 mmol/L (98-107); Estimated GFR-MDRD Greater than 90; Glucose 119 mg/dL (83-110); Potassium 3.6 mmol/L (3.5-5.1); Sodium 139 mmol/L (136-145)
--- NOTE | 2020-01-09 12:29 | PDOC.HOSPP ---
- Subjective Encounter Date: 01/09/20 Encounter Time: 06:30 Subjective: Patient seen and examined. No new complaints. No overnight events - Objective Vital Signs & Weight: Vital Signs (12 hours) Temp Pulse Resp BP Pulse Ox 01/09/20 12:23 77 01/09/20 04:10 98.2 F 78 16 145/75 H 98 Weight Weight 169 lb 11.2 oz I&O: 01/08/20 01/09/20 01/10/20 06:59 06:59 06:59 Intake Total 1700 480 Balance 1700 480 Result Diagrams: 01/09/20 11:49 01/06/20 04:49 Additional Labs: Accuchecks 01/09/20 01/09/20 01/09/20 11:55 10:36 10:11 POC Glucose 120 H 135 H 182 H 01/09/20 01/09/20 09:48 09:07 POC Glucose 156 H 154 H Radiology Reviewed by me: Yes EKG Reviewed by me: Yes Hospitalist ROS - Review of Systems ENT: denies: ear pain, ear discharge, nose pain, nose discharge, nose congestion , mouth pain, mouth swelling, throat pain, throat swelling, other Respiratory: denies: cough, dry, shortness of breath, hemoptysis, SOB with excertion, pleuritic pain, sputum, wheezing, other Cardiovascular: denies: chest pain, palpitations, orthopnea, paroxysmal noc. dyspnea, edema, light headedness, other Gastrointestinal: denies: nausea, vomiting, abdominal pain, diarrhea, constipation, melena, hematochezia, other Genitourinary: denies: dysuria, frequency, incontinence, hematuria, retention, other Musculoskeletal: denies: neck pain, shoulder pain, arm pain, back pain, hand pain, leg pain, foot pain, other - Medication Medications: Active Medications Generic Name Dose Route Start Last Admin Trade Name Freq PRN Reason Stop Dose Admin Aspirin 81 mg 01/06/20 09:00 01/08/20 08:28 Ecotrin PO 81 mg DAILY RIKY Administration Atorvastatin Calcium 40 mg 01/05/20 21:00 01/08/20 21:44 Lipitor PO 40 mg HS RIKY Administration Colchicine 0.3 mg 01/06/20 09:08 01/08/20 21:46 Colchicine PO 0.3 mg BID RIKY Administration - Exam General Appearance: NAD, awake alert Eye: PERRL, anicteric sclera ENT: normocephalic atraumatic, no oropharyngeal lesions Neck: supple, symmetric, no JVD, no thyromegaly Heart: RRR, no murmur, no gallops, no rubs Respiratory: CTAB, no wheezes, no rales, no ronchi Gastrointestinal: soft, non-tender, non-distended, normal bowel sounds Extremities: no cyanosis, no clubbing Skin: normal turgor, no lesions Neurological: no focal deficits Musculoskeletal: normal tone, normal strength Psychiatric: normal affect, normal behavior Hosp A/P (1) Chest pain Code(s): R07.9 - CHEST PAIN, UNSPECIFIED Status: Acute Qualifiers: Chest pain type: unspecified Qualified Code(s): R07.9 - Chest pain, unspecified (2) Elevated troponin I level Code(s): R79.89 - OTHER SPECIFIED ABNORMAL FINDINGS OF BLOOD CHEMISTRY Status : Acute (3) Aortic stenosis Code(s): I35.0 - NONRHEUMATIC AORTIC (VALVE) STENOSIS Status: Chronic (4) CAD (coronary artery disease) Code(s): I25.10 - ATHSCL HEART DISEASE OF [place] CORONARY ARTERY W/O ANG PCTRS Status: Chronic (5) HTN (hypertension) Code(s): I10 - ESSENTIAL (PRIMARY) HYPERTENSION Status: Chronic Qualifiers: Hypertension type: essential hypertension Qualified Code(s): I10 - Essential (primary) hypertension (6) Tobacco abuse Code(s): Z72.0 - TOBACCO USE Status: Chronic - Plan old records reviewed/req, continue antibiotics Patient is plan for aortic valve replacement and CABG today Postoperative care will defer to surgeon and insurance claims specialist Postoperatively patient will be closely monitored in the ICU
[2020-01-09] MEDS: D5 1/2 NS w/20 mEq KCL 1,000 ML IV SCH (12:35)
[2020-01-09 12:38] LABS: Puncture Site ALINE
--- NOTE | 2020-01-09 12:52 | RAD ---
XR Chest 1 View Portable History: Pneumothorax Comparison: Radiograph same day Findings: Interval placement left thoracostomy tube with tip near the left lung apex. Small left apic al pneumothorax remains. Reexpansion pulmonary edema left lower lobe. Right lung relatively clear. Mediastinal drains are similar. Prior aortic valve replacement. Impression: Moderate interval improved left lung aeration post thoracostomy tube placement.
[2020-01-09] MEDS: Colchicine 0.6 MG TAB PO SCH ×2 (13:35→20:40)
[2020-01-09] MEDS: Aspirin 81 mg Enteric Coated Tablet PO SCH (13:35)
[2020-01-09] MEDS: Ketorolac Tromethamine 30 MG/ML VIAL IVP SCH ×2 (13:38→17:39)
[2020-01-09] MEDS: Potassium Chloride 20 MEQ/100 ML PREMIX BAG IVPB PRN (13:45)
[2020-01-09] MEDS: CEFAZOLIN 2 GM in Premix Bag 1 BAG IVPB SCH ×2 (13:46→21:07)
[2020-01-09] MEDS: Sodium Chloride 0.9% 1,000 ML IV SCH (13:56)
--- NOTE | 2020-01-09 16:06 | OP ---
DATE OF PROCEDURE: 01/09/2020 PREOPERATIVE DIAGNOSES: Coronary disease/aortic stenosis. POSTOPERATIVE DIAGNOSES: Coronary disease/aortic stenosis. PROCEDURES PERFORMED: 1. Aortic valve replacement #23 INSPIRIS bioprosthetic valve. 2. Coronary artery bypass grafting x3 -. a. Left internal mammary artery to 2.0 mm distal left anterior descending - good conduit and target. b. Reverse saphenous vein to 2.5 mm obtuse marginal - good conduit and target. c. Reverse saphenous vein to 2.5 mm diagonal - good conduit and target. 3. Ligation of left atrial appendage. GLASSWARE MAKER: Efrain Benjamin MD ANESTHESIA: General endotracheal, Dr. Tray Tavera. PUMP TIME: 114 minutes. CROSS-CLAMP TIME: 78 minutes. LOW-CORE TEMPERATURE: 34 degrees Celsius. DIGITAL CONTENT SPECIALIST: Jonathon Charles. DRAINS: 24-[place] chest tubes x2. DRIPS: None. TRANSFUSIONS: None. DESCRIPTION OF PROCEDURE: After consent was obtained, the patient was brought to the operating room and placed in supine position on the operating room table. Appropriate central line and monitors were placed and general endotracheal anesthesia was induced. Chest, abdomen, and legs were prepped and draped in usual sterile fashion. Greater saphenous vein was harvested from the left thigh utilizing endoscopic technique. Wounds were irrigated and closed in layers. Median sternotomy was performed. Left internal mammary artery was harvested as a pedicle graft. The patient was systemically heparinized. Distal pedicle was divided and infused with papaverine. Thymic fat and pericardium were divided with electrocautery. Pericardial stay sutures were placed. Aortic and atrial cannulation was performed. After adequate heparinization, retrograde prime was performed. The patient was placed on cardiopulmonary bypass. Distal targets were marked. A left ventricular sump drain was placed through the right superior pulmonary vein. Aortic cross-clamp was applied, and antegrade sanguineous cardioplegic arrest was obtained. 1 L of antegrade cold [place] cardioplegia was given. Topical cold solution was used. The left atrial appendage was exposed and ligated in two-layer fashion with running 4-0 Prolene suture. Reverse saphenous vein was anastomosed to the OM in end-to-side fashion with running 7-0 prolene suture. Anastomosis was tested and was hemostatic. Reverse saphenous vein was anastomosed to diagonal in end-to-side fashion with running 7-0 Prolene suture. Anastomosis was tested and was hemostatic. Mammary artery was brought through a window in the pericardium and anastomosed to LAD in end-to-side fashion with running 7-0 Prolene suture. On release of mammary clamps, good hooding of the anastomosis and good distal flow. Two stitches were placed for hemostasis. The mammary artery was re-clamped. 300 mL of antegrade cardioplegia was given including down the grafts. A transverse aortotomy was performed. Aortic stay sutures were placed. Valve was inspected. It was a three leaflet valve with fused left-right and right non-commissures. They were fused all the way into the center of the valve and heavily calcified. The valve leaflets were debrided. Annulus was decalcified. Pledgeted 2-0 Ethibond sutures were placed in the aortic annulus. Valve was measured and it was #23. The valve sutures were then passed through the INSPIRIS sewing ring. The valve was seated and sutures all secured with Cor-Knots. Carbon dioxide was infused in the pericardial well throughout the open portion of the aortic procedure. Aortotomy was then closed in a running dual-layered fashion with pledgeted 4-0 Prolene suture. The patient was placed in Trendelenburg position. Cross-clamp was removed. After a minute, partial occluding clamp was placed. Saphenous veins were anastomosed to individual punch sites with running 6-0 Prolene suture. Partial occluding clamp was removed and graft was deaired. Anastomoses were inspected for hemostasis. A single stitch was placed in the toe of the ESPARZA graft. After adequate hemostasis had been obtained, the patient was warmed and weaned from cardiopulmonary bypass. Using HERIBERTO, the valve functioned well with no paravalvular leak. There was no air or CO2 within the ventricular cavity. Bypass was discontinued. The left ventricular sump drain was removed and its pursestring suture secured. Protamine was administered. Decannulation was performed and pursestring suture was secured. After adequate hemostasis had been obtained, 24-[place] chest tubes x2 were placed in the mediastinum. The sternum was treated with vancomycin paste. The sternum was closed with #7 wire. Sternum was treated with platelet-rich plasma, wires twisted and buried. Wounds were irrigated and treated with platelet-poor plasma and closed in multiple layers. Presternal blocks performed with 0.5% Marcaine mixed with Decadron. The patient tolerated the procedure well, was transferred to the intensive care in stable, but critical condition. Needle, sponge, and instrument counts were all reported as correct at the end of the procedure. Job ID: [id number]
[2020-01-09] MEDS: Vancomycin 1.5 GRAM/300 ML BAG 1.5 GM in Premix Bag 1 BAG IVPB SCH (17:37)
[2020-01-09 17:40] LABS: Hemoglobin 12.5 g/dL (14.0-18.0)
[2020-01-09] MEDS: Atorvastatin Calcium 40 MG TAB PO SCH (20:40)
[2020-01-09] MEDS: traMADol HCl 50 MG TAB PO PRN (20:41)
[2020-01-09] MEDS: Famotidine/PF 20 mg/2ml Vial SLOW IVP SCH (20:41)
[2020-01-09] MEDS: hydrALAZINE 20 MG/ML VIAL SLOW IVP PRN (21:06)
[2020-01-10] MEDS: Ketorolac Tromethamine 30 MG/ML VIAL IVP SCH ×4 (00:35→17:03)
[2020-01-10] MEDS: traMADol HCl 50 MG TAB PO PRN ×3 (03:12→20:44)
[2020-01-10 04:49] LABS: #Lymphocytes 0.9 thou/uL (1.20-3.40); #Monocytes 1.2 thou/uL (0.11-0.59); #Neutrophils 7.8 thou/uL (1.40-6.50); %Basophils 0.1 % (0.0-1.0); %Eosinophils 0.2 % (0.0-10.0); %Lymphocytes 8.7 % (21.0-51.0); %Monocytes 11.9 % (0.0-10.0); %Neutrophils 79.2 % (42.0-75.0); Hemoglobin 11.5 g/dL (14.0-18.0); Mean Corpuscular HGB CONC 32.4 g/dL (32.0-36.0); Mean Corpuscular Hemoglobin 30.9 pg (27.0-31.0); Mean Corpuscular Volume 95.3 fL (78.0-98.0); Platelet Count 147 thou/uL (130-400); RBC Distribution Width 11.5 % (11.5-14.5); Red Blood Cell (RBC) Count 3.74 mill/uL (4.70-6.10); White Blood Cell (WBC) Count 9.9 thou/uL (4.8-10.8)
[2020-01-10 05:12] LABS: Anion Gap 10 mmol/L (10-20); BUN (Urea Nitrogen) 11 mg/dL (8.4-25.7); Calc. Creatinine Clearance 90 mL/min (70-130); Calcium 7.7 mg/dL (7.8-10.44); Carbon Dioxide 22 mmol/L (23-31); Chloride 108 mmol/L (98-107); Estimated GFR-MDRD Greater than 90; Glucose 119 mg/dL (83-110); Potassium 3.9 mmol/L (3.5-5.1); Sodium 136 mmol/L (136-145)
[2020-01-10] MEDS: CEFAZOLIN 2 GM in Premix Bag 1 BAG IVPB SCH (05:31)
[2020-01-10] MEDS: Potassium Chloride 20 MEQ/100 ML PREMIX BAG IVPB PRN (05:37)
[2020-01-10] MEDS: Vancomycin 1.5 GRAM/300 ML BAG 1.5 GM in Premix Bag 1 BAG IVPB SCH (06:40)
--- NOTE | 2020-01-10 07:55 | OP ---
DATE OF PROCEDURE: 01/09/2020 PREOPERATIVE DIAGNOSIS: Left pneumothorax post coronary artery bypass grafting. POSTOPERATIVE DIAGNOSIS: Left pneumothorax post coronary artery bypass grafting. PROCEDURE PERFORMED: Left chest tube placement. ANESTHESIA: 1% lidocaine for local. DESCRIPTION OF PROCEDURE: The patient returned from the operating room and was found on chest x-ray to have a left pneumothorax. There was no air leak from the mediastinal tubes. Therefore, the left chest wall was prepped and draped in usual sterile fashion. Skin, subcutaneous tissue, and intercostal musculature were anesthetized with 1% lidocaine. A small skin incision was made and blunt dissection used to enter the chest cavity above approximately the 6th rib. A 20-Danish chest tube was passed to 15 cm and secured to the skin with silk suture. Followup chest x-ray showed resolution of pneumothorax. Job ID: [id number]
--- NOTE | 2020-01-10 08:00 | RAD ---
RADIOGRAPH CHEST 1 VIEW: DATE: 01/10/2020 TIME: 5:38 AM HISTORY: 75-year-old male status post open heart surgery COMPARISON: 01/09/2020 12:27 PM FINDINGS: Sternotomy wires. Left-sided chest tube, midline chest tube, right subclavian central line, remain. L eft lower lobe consolidation appears slightly worse now. No pneumothorax. IMPRESSION: Slight interval worsening of aeration of left lower lobe, probably atelectasis, although pneumonia ca nnot be excluded. Recommend continued follow-up.
[2020-01-10] MEDS: Aspirin 81 mg Enteric Coated Tablet PO SCH (08:31)
[2020-01-10] MEDS: Colchicine 0.6 MG TAB PO SCH ×2 (08:31→20:43)
[2020-01-10] MEDS: Famotidine/PF 20 mg/2ml Vial SLOW IVP SCH (08:32)
[2020-01-10] MEDS: Magnesium 2 GM/50 ML 2 GM in Premix Bag 1 BAG IVPB SCH (08:32)
--- NOTE | 2020-01-10 09:00 | PRG ---
DATE OF SERVICE: 01/10/2020 SUBJECTIVE: Mr. Braxton is doing well postoperatively. No angina. He is not short of breath. OBJECTIVE: VITAL SIGNS: His blood pressure is 120 systolic, pulse is 100 and it is sinus. LUNGS: Clear. CARDIAC: Normal S1, normal S2. ABDOMEN: Soft and nontender. EXTREMITIES: No edema. ASSESSMENT: 1. Status post aortic valve replacement and bypass x3. 2. History of hypertension. 3. Atherosclerosis of the internal carotid arteries, but no hemodynamically significant stenosis. PLAN: 1. Start low-dose beta-rhonda. 2. Continue aspirin. 3. Continue statin. 4. He is on low-dose colchicine. Some of his pain sounds like it could be pericardial, but Dr. Silver's note does not indicate there was pericarditis at least grossly. We will stop the colchicine tomorrow. Job ID: [id number]
[2020-01-10] MEDS: D5 1/2 NS w/20 mEq KCL 1,000 ML IV SCH (13:59)
[2020-01-10] MEDS: hydrALAZINE 20 MG/ML VIAL SLOW IVP PRN ×2 (14:35→20:45)
[2020-01-10] MEDS ORDERED: Lisinopril 5 MG TAB PO SCH (17:30)
--- NOTE | 2020-01-10 18:18 | PDOC.HOSPP ---
- Subjective Encounter Date: 01/10/20 Subjective: Doing very well postoperatively. No significant pain. No complaints. - Objective Vital Signs & Weight: Vital Signs (12 hours) Temp Pulse Resp Pulse Ox 01/10/20 17:33 105 H 01/10/20 15:00 98.4 F 01/10/20 14:35 105 H 01/10/20 14:00 105 H 21 H 99 01/10/20 12:00 99.3 F 01/10/20 08:26 98 24 H 100 01/10/20 08:00 99 01/10/20 07:00 99.7 F H Weight Weight 171 lb 4.787 oz Most Recent Monitor Data Heart Rate from ECG 110 NIBP 141/95 NIBP BP-Mean 110 Respiration from ECG 15 SpO2 99 I&O: 01/09/20 01/10/20 01/11/20 06:59 06:59 06:59 Intake Total 480 1428.6 330 Output Total 3365 555 Balance 480 -1936.4 -225 Result Diagrams: 01/10/20 04:00 01/10/20 04:00 Additional Labs: Accuchecks 01/10/20 01/10/20 01/10/20 10:26 08:05 06:21 POC Glucose 116 H 97 126 H 01/10/20 01/10/20 01/10/20 05:35 04:25 03:20 POC Glucose 111 H 126 H 118 H 01/10/20 01/10/20 01/09/20 02:08 00:39 23:19 POC Glucose 146 H 105 106 01/09/20 01/09/20 01/09/20 22:19 21:21 20:22 POC Glucose 87 104 106 01/09/20 01/09/20 01/09/20 19:21 11:28 10:57 POC Glucose 102 119 H 125 H 01/09/20 07:50 POC Glucose 130 H Hospitalist ROS - Medication Medications: Active Medications Generic Name Dose Route Start Last Admin Trade Name Freq PRN Reason Stop Dose Admin Acetaminophen 650 mg 01/09/20 11:41 01/10/20 08:09 Tylenol PO 650 mg Q6H PRN Administration Headache/Fever Or Mild Pain Albuterol/Ipratropium 3 ml 01/09/20 13:00 01/10/20 14:00 Duoneb NEB 3 ml [id number] RIKY Administration Aspirin 81 mg 01/06/20 09:00 01/10/20 08:31 Ecotrin PO 81 mg DAILY RIKY Administration Atorvastatin Calcium 40 mg 01/05/20 21:00 01/09/20 20:40 Lipitor PO 40 mg HS RIKY Administration Colchicine 0.3 mg 01/06/20 09:08 01/10/20 08:31 Colchicine PO 0.3 mg BID RIKY Administration Fentanyl 25 mcg 01/09/20 11:41 01/09/20 15:15 Sublimaze SLOW IVP 01/11/20 11:33 25 mcg Q2H PRN Administration Moderate Pain (4-6) Hydralazine HCl 10 mg 01/09/20 11:41 01/10/20 14:35 Apresoline SLOW IVP 10 mg Q6H PRN Administration To Maintain SBP< 140mmHG Magnesium Sulfate 2 gm/ Device 50 mls @ 50 mls/hr 01/10/20 09:00 01/10/20 08: 32 IVPB 01/11/20 09:59 50 mls QAM RIKY Administration Ketorolac Tromethamine 30 mg 01/09/20 12:00 01/10/20 17:03 Toradol IVP 01/12/20 12:01 30 mg Q6HR RIKY Administration Lisinopril 5 mg 01/10/20 17:30 01/10/20 17:33 Zestril PO 01/10/20 19:30 5 mg NOW RIKY Administration Metoprolol Succinate 25 mg 01/10/20 09:00 01/10/20 09:32 Toprol Xl PO 25 mg DAILY RIKY Administration Potassium Chloride 20 meq 01/09/20 11:41 01/10/20 05:37 Kcl IVPB 20 meq PRN PRN Administration K level </= 4.0 Tramadol HCl 50 mg 01/09/20 11:41 01/09/20 20:41 Ultram PO 50 mg Q6H PRN Administration Pain Tramadol HCl 100 mg 01/09/20 11:41 01/10/20 13:09 Ultram PO 100 mg Q6H PRN Administration Pain - Exam General Appearance: NAD, awake alert Heart: RRR, no murmur, no gallops, no rubs, normal peripheral pulses Respiratory: CTAB, no wheezes, no rales, no ronchi, normal chest expansion, no tachypnea, normal percussion Gastrointestinal: soft, non-tender, non-distended, normal bowel sounds, no palpable masses, no hepatomegaly, no splenomegaly, no bruit Extremities: no cyanosis, no clubbing, no edema Musculoskeletal: normal tone Psychiatric: normal affect, normal behavior, A&O x 3 Hosp A/P (1) Status post aorto-coronary artery bypass graft Code(s): Z95.1 - PRESENCE OF AORTOCORONARY BYPASS GRAFT Status: Acute (2) Status post aortic valve replacement with bioprosthetic valve Code(s): Z95.3 - PRESENCE OF XENOGENIC HEART VALVE Status: Acute (3) NSTEMI (non-ST elevated myocardial infarction) Code(s): I21.4 - NON-ST ELEVATION (NSTEMI) MYOCARDIAL INFARCTION Status: Acute (4) Aortic stenosis Code(s): I35.0 - NONRHEUMATIC AORTIC (VALVE) STENOSIS Status: Chronic (5) CAD (coronary artery disease) Code(s): I25.10 - ATHSCL HEART DISEASE OF [place] CORONARY ARTERY W/O ANG PCTRS Status: Chronic (6) HTN (hypertension) Code(s): I10 - ESSENTIAL (PRIMARY) HYPERTENSION Status: Chronic Qualifiers: Hypertension type: essential hypertension Qualified Code(s): I10 - Essential (primary) hypertension (7) Tobacco abuse Code(s): Z72.0 - TOBACCO USE Status: Chronic - Plan Patient is doing extremely well. Followed by CV surgery and cardiology. Defer primary treatment plan to those services. Nothing to add at this time. Blood pressure is generally well controlled. Blood sugars well controlled.
[2020-01-10] MEDS: Atorvastatin Calcium 40 MG TAB PO SCH (20:43)
[2020-01-11] MEDS: Ketorolac Tromethamine 30 MG/ML VIAL IVP SCH ×4 (00:02→17:00)
[2020-01-11 05:03] VITALS: BMI 24.5
--- NOTE | 2020-01-11 07:57 | RAD ---
Exam: Chest one view HISTORY:Status post open heart surgery Comparison: 01/10/2020 FINDINGS: Cardiac silhouette:Cardiomegaly. Sternotomy wires. Prosthetic aortic valve Lines and tubes: Interval removal of left-sided chest tube. Stable right-sided vascular catheter. No abnormal mediastinal drainage catheter. Aorta: Atherosclerosis Pulmonary vessels: Normal Costophrenic angles: Small left-sided pleural effusion. LUNGS: Left lower lobe and right lower lobe parenchymal changes likely representing atelectasis. Pneumothorax: None Osseous abnormalities: None IMPRESSION: Findings compatible with recent open heart surgery
[2020-01-11] MEDS ORDERED: Bisacodyl 10 MG SUPP PR PRN (08:18)
[2020-01-11] MEDS ORDERED: diphenhydrAMINE 25 MG CAP PO PRN (08:18)
[2020-01-11] MEDS ORDERED: Mineral Oil ENEMA PR PRN (08:18)
[2020-01-11] MEDS ORDERED: Guaifenesin DM 100-10/5 ML UDCUP PO PRN (08:18)
[2020-01-11] MEDS ORDERED: Mag-Al 1200 mg/1200 mg/30 ML UDCUP PO PRN (08:18)
[2020-01-11] MEDS ORDERED: Bisacodyl 5 MG TAB PO PRN (08:18)
[2020-01-11] MEDS ORDERED: Zolpidem Tartrate 5 MG TAB PO PRN (08:18)
[2020-01-11] MEDS ORDERED: Milk Of Magnesia 30 ML UDCUP PO PRN (08:18)
[2020-01-11] MEDS ORDERED: Nitroglycerin 0.4 MG TAB (25 Tab Bottle) SL PRN (08:18)
[2020-01-11] MEDS: Colchicine 0.6 MG TAB PO SCH ×2 (09:19→19:46)
[2020-01-11] MEDS: Aspirin 81 mg Enteric Coated Tablet PO SCH (09:19)
[2020-01-11] MEDS: Lisinopril 5 MG TAB PO SCH (09:20)
[2020-01-11] MEDS: Magnesium 2 GM/50 ML 2 GM in Premix Bag 1 BAG IVPB SCH (09:21)
[2020-01-11] MEDS: Metoprolol Tartrate 50 MG TAB PO SCH ×2 (09:22→19:46)
[2020-01-11] MEDS: traMADol HCl 50 MG TAB PO PRN ×2 (12:28→19:47)
--- NOTE | 2020-01-11 13:14 | PRG ---
DATE OF SERVICE: 01/11/2020 SUBJECTIVE: Mr. Braxton feels somewhat fidgety. He is not having chest pain or pressure. Seems somewhat restless. OBJECTIVE: VITAL SIGNS: Blood pressure 123/95; pulse is in the 90s, it is sinus. LUNGS: Clear. CARDIAC: Normal S1, normal S2. ABDOMEN: Soft, nontender. EXTREMITIES: There is no edema. ASSESSMENT: 1. Status post bypass surgery and aortic valve replacement. 2. Hypertension. PLAN: 1. He is on oral metoprolol with increased dose. 2. Keep in the ICU for now. 3. He is on aspirin. Dr. Watkins to see this weekend. Job ID: [id number]
--- NOTE | 2020-01-11 19:31 | PDOC.HOSPP ---
- Subjective Encounter Date: 01/11/20 Subjective: Doing well postop. Today the patient had a little bit of chest discomfort after he started using his incentive spirometer more aggressively. - Objective Vital Signs & Weight: Vital Signs (12 hours) Temp Pulse Pulse Pulse Resp BP BP 01/11/20 19:21 99.3 F 92 18 01/11/20 18:33 01/11/20 18:31 01/11/20 16:43 97.3 F L 97 19 01/11/20 13:26 91 16 01/11/20 12:00 98.6 F 01/11/20 09:59 119 H 117 H 130/96 H 01/11/20 09:20 113 H 132/94 H 01/11/20 09:18 01/11/20 09:17 113 H 17 01/11/20 08:00 98.5 F BP BP Pulse Ox Pulse Ox 01/11/20 19:21 130/82 94 L 01/11/20 18:33 98 01/11/20 18:31 99 01/11/20 16:43 125/90 96 01/11/20 13:26 01/11/20 12:00 01/11/20 09:59 123/95 H 100 01/11/20 09:20 01/11/20 09:18 100 01/11/20 09:17 01/11/20 08:00 98 Weight Weight 180 lb 12.465 oz Most Recent Monitor Data Heart Rate from ECG 97 NIBP 109/80 NIBP BP-Mean 89 Respiration from ECG 18 SpO2 95 I&O: 01/10/20 01/11/20 01/12/20 06:59 06:59 06:59 Intake Total 1428.6 760 1110 Output Total 3365 1145 210 Balance -1936.4 -385 900 Result Diagrams: 01/10/20 04:00 01/10/20 04:00 Hospitalist ROS - Medication Medications: Active Medications Generic Name Dose Route Start Last Admin Trade Name Freq PRN Reason Stop Dose Admin Acetaminophen 650 mg 01/09/20 11:41 01/10/20 08:09 Tylenol PO 650 mg Q6H PRN Administration Headache/Fever Or Mild Pain Albuterol/Ipratropium 3 ml 01/09/20 13:00 01/11/20 18:31 Duoneb NEB 3 ml [id number] RIKY Administration Aspirin 81 mg 01/06/20 09:00 01/11/20 09:19 Ecotrin PO 81 mg DAILY RIKY Administration Atorvastatin Calcium 40 mg 01/05/20 21:00 01/10/20 20:43 Lipitor PO 40 mg HS RIKY Administration Colchicine 0.3 mg 01/06/20 09:08 01/11/20 09:19 Colchicine PO 0.3 mg BID RIKY Administration Hydralazine HCl 10 mg 01/09/20 11:41 01/10/20 20:45 Apresoline SLOW IVP 10 mg Q6H PRN Administration To Maintain SBP< 140mmHG Ketorolac Tromethamine 30 mg 01/09/20 12:00 01/11/20 17:00 Toradol IVP 01/12/20 12:01 30 mg Q6HR RIKY Administration Lisinopril 5 mg 01/11/20 09:00 01/11/20 09:20 Zestril PO 5 mg DAILY RIKY Administration Metoprolol Tartrate 50 mg 01/11/20 09:00 01/11/20 09:22 Lopressor PO 50 mg BID RIKY Administration Pantoprazole Sodium 40 mg 01/11/20 09:00 01/11/20 09:22 Protonix PO 40 mg DAILY RIKY Administration Tramadol HCl 50 mg 01/09/20 11:41 01/09/20 20:41 Ultram PO 50 mg Q6H PRN Administration Pain Tramadol HCl 100 mg 01/09/20 11:41 01/11/20 12:28 Ultram PO 100 mg Q6H PRN Administration Pain - Exam General Appearance: NAD, awake alert Heart: RRR, no murmur, no gallops, no rubs, normal peripheral pulses Respiratory: CTAB, no wheezes, no rales, no ronchi, normal chest expansion, no tachypnea, normal percussion Gastrointestinal: soft, non-tender, non-distended, normal bowel sounds, no palpable masses, no hepatomegaly, no splenomegaly, no bruit Extremities: no cyanosis, no clubbing, no edema Skin: normal turgor Neurological: no new deficit Musculoskeletal: normal tone, normal strength, no muscle wasting Psychiatric: normal affect, normal behavior, A&O x 3 Hosp A/P (1) Status post aorto-coronary artery bypass graft Code(s): Z95.1 - PRESENCE OF AORTOCORONARY BYPASS GRAFT Status: Acute (2) Status post aortic valve replacement with bioprosthetic valve Code(s): Z95.3 - PRESENCE OF XENOGENIC HEART VALVE Status: Acute (3) NSTEMI (non-ST elevated myocardial infarction) Code(s): I21.4 - NON-ST ELEVATION (NSTEMI) MYOCARDIAL INFARCTION Status: Acute (4) Aortic stenosis Code(s): I35.0 - NONRHEUMATIC AORTIC (VALVE) STENOSIS Status: Chronic (5) CAD (coronary artery disease) Code(s): I25.10 - ATHSCL HEART DISEASE OF [place] CORONARY ARTERY W/O ANG PCTRS Status: Chronic (6) HTN (hypertension) Code(s): I10 - ESSENTIAL (PRIMARY) HYPERTENSION Status: Chronic Qualifiers: Hypertension type: essential hypertension Qualified Code(s): I10 - Essential (primary) hypertension (7) Tobacco abuse Code(s): Z72.0 - TOBACCO USE Status: Chronic - Plan Patient is doing extremely well. Followed by CV surgery and cardiology. Defer primary treatment plan to those services. Nothing to add at this time. Blood pressure is generally well controlled. Blood sugars well controlled. Encourage patient to continue using the incentive spirometer.
[2020-01-11] MEDS: Atorvastatin Calcium 40 MG TAB PO SCH (19:46)
[2020-01-12] MEDS: Ketorolac Tromethamine 30 MG/ML VIAL IVP SCH ×3 (00:15→13:16)
[2020-01-12] MEDS: Colchicine 0.6 MG TAB PO SCH ×2 (09:12→20:53)
[2020-01-12] MEDS: Lisinopril 5 MG TAB PO SCH ×2 (09:12→20:53)
[2020-01-12] MEDS: Metoprolol Tartrate 50 MG TAB PO SCH ×2 (09:12→20:53)
[2020-01-12] MEDS: traMADol HCl 50 MG TAB PO PRN ×3 (09:12→21:48)
[2020-01-12] MEDS: Aspirin 81 mg Enteric Coated Tablet PO SCH (09:12)
--- NOTE | 2020-01-12 11:48 | PDOC.HOSPP ---
- Subjective Encounter Date: 01/12/20 Subjective: Doing very well overall. He has been up and walking with physical therapy. He does have some pain in his upper sternal area. Continues to try to use the incentive spirometer. - Objective Vital Signs & Weight: Vital Signs (12 hours) Temp Pulse Resp BP BP Pulse Ox 01/12/20 09:12 100 01/12/20 08:00 95 01/12/20 07:56 99.6 F 100 18 124/79 95 01/12/20 07:43 80 16 01/12/20 04:00 98.2 F 97 18 134/91 H 94 L 01/12/20 01:23 99 Weight Weight 177 lb 3.2 oz Most Recent Monitor Data Heart Rate from ECG 97 NIBP 109/80 NIBP BP-Mean 89 Respiration from ECG 18 SpO2 95 I&O: 01/11/20 01/12/20 01/13/20 06:59 06:59 06:59 Intake Total 760 1590 Output Total 1145 210 Balance -385 1380 Result Diagrams: 01/10/20 04:00 01/10/20 04:00 Hospitalist ROS - Medication Medications: Active Medications Generic Name Dose Route Start Last Admin Trade Name Freq PRN Reason Stop Dose Admin Acetaminophen 650 mg 01/09/20 11:41 01/10/20 08:09 Tylenol PO 650 mg Q6H PRN Administration Headache/Fever Or Mild Pain Albuterol/Ipratropium 3 ml 01/09/20 13:00 01/12/20 07:43 Duoneb NEB 3 ml [id number] RIKY Administration Aspirin 81 mg 01/06/20 09:00 01/12/20 09:12 Ecotrin PO 81 mg DAILY RIKY Administration Atorvastatin Calcium 40 mg 01/05/20 21:00 01/11/20 19:46 Lipitor PO 40 mg HS RIKY Administration Colchicine 0.3 mg 01/06/20 09:08 01/12/20 09:12 Colchicine PO 0.3 mg BID RIKY Administration Hydralazine HCl 10 mg 01/09/20 11:41 01/10/20 20:45 Apresoline SLOW IVP 10 mg Q6H PRN Administration To Maintain SBP< 140mmHG Ketorolac Tromethamine 30 mg 01/09/20 12:00 01/12/20 06:22 Toradol IVP 01/12/20 12:01 30 mg Q6HR RIKY Administration Lisinopril 5 mg 01/11/20 09:00 01/12/20 09:12 Zestril PO 5 mg DAILY RIKY Administration Metoprolol Tartrate 50 mg 01/11/20 09:00 01/12/20 09:12 Lopressor PO 50 mg BID RIKY Administration Pantoprazole Sodium 40 mg 01/11/20 09:00 01/12/20 09:12 Protonix PO 40 mg DAILY RIKY Administration Tramadol HCl 50 mg 01/09/20 11:41 01/09/20 20:41 Ultram PO 50 mg Q6H PRN Administration Pain Tramadol HCl 100 mg 01/09/20 11:41 01/12/20 09:12 Ultram PO 100 mg Q6H PRN Administration Pain - Exam General Appearance: NAD, awake alert Heart: RRR, no murmur, no gallops, no rubs, normal peripheral pulses Respiratory: CTAB, no wheezes, no rales, no ronchi, normal chest expansion, no tachypnea, normal percussion Gastrointestinal: soft, non-tender, non-distended, normal bowel sounds, no palpable masses, no hepatomegaly, no splenomegaly, no bruit Extremities: no cyanosis, no clubbing, no edema Skin: normal turgor Skin - other findings: Sternal incision appears healthy. Musculoskeletal: normal tone Psychiatric: normal affect, normal behavior, A&O x 3 Hosp A/P (1) Status post aorto-coronary artery bypass graft Code(s): Z95.1 - PRESENCE OF AORTOCORONARY BYPASS GRAFT Status: Acute (2) Status post aortic valve replacement with bioprosthetic valve Code(s): Z95.3 - PRESENCE OF XENOGENIC HEART VALVE Status: Acute (3) NSTEMI (non-ST elevated myocardial infarction) Code(s): I21.4 - NON-ST ELEVATION (NSTEMI) MYOCARDIAL INFARCTION Status: Acute (4) Aortic stenosis Code(s): I35.0 - NONRHEUMATIC AORTIC (VALVE) STENOSIS Status: Chronic (5) CAD (coronary artery disease) Code(s): I25.10 - ATHSCL HEART DISEASE OF [place] CORONARY ARTERY W/O ANG PCTRS Status: Chronic (6) HTN (hypertension) Code(s): I10 - ESSENTIAL (PRIMARY) HYPERTENSION Status: Chronic Qualifiers: Hypertension type: essential hypertension Qualified Code(s): I10 - Essential (primary) hypertension (7) Tobacco abuse Code(s): Z72.0 - TOBACCO USE Status: Chronic - Plan Patient is doing extremely well. Followed by CV surgery and cardiology. Defer primary treatment plan to those services. Nothing to add at this time. Blood pressure is generally well controlled. Blood sugars well controlled. Encourage patient to continue using the incentive spirometer and ambulating as tolerated.
[2020-01-12] MEDS ORDERED: Iopamidol 370 76% 100 ML VIAL ONE (11:52)
--- NOTE | 2020-01-12 15:45 | CT ---
CTA Angio Chest W WO Con History: Recent heart surgery with shortness of breath Comparison: CT angiogram chest January 07, 2020 Findings: CT angiogram chest performed after the intravenous ministration of contrast. 3-D rendering provided. Mild subcutaneous gas within the retrosternal space, expected after recent surgery. No pulmonary embo lism. Thoracic aortic contour is normal. Nonobstructing calculus in the superior pole right kidney. Lungs are clear. No pneumothorax. No effusion. Small-moderate layering pleural effusions. Mild compressive atelectasis lung bases. No pneumothorax. Impression: Uncomplicated postoperative findings. No pulmonary embolism.
--- NOTE | 2020-01-12 16:54 | PDOC.CPN ---
- Subjective Date: 01/12/20 Time: 16:53 Interval history: Had episodes of chest tightness earlier today but better now. Had BM today. - Review of Systems General: denies: fever/chills, weight/appetite/sleep changes, night sweats, fatigue Respiratory: denies: cough, congestion, shortness of breath, exercise intolerance Cardiovascular: reports: chest pain. denies: palpitation, edema, paroxysmal nocturnal dyspnea, orthopnea Gastrointestinal: denies: nausea, vomiting, diarrhea, constipation, abd pain, GI bleeding Musculoskeletal: denies: pain, tenderness, stiffness, swelling, arthritis/ arthralgias Neurological: denies: numbness, syncope, seizure, weakness - Objective Allergies/Adverse Reactions: Allergies Allergy/AdvReac Type Severity Reaction Status Date / Time No Known Drug Allergies Allergy Verified 01/07/20 08:25 Visit Medications: Current Medications Acetaminophen (Tylenol) 650 mg PO Q6H PRN PRN Reason: Headache/Fever Or Mild Pain Last Admin: 01/10/20 08:09 Dose: 650 mg Al Hydroxide/Mg Hydroxide (Maalox) 30 ml PO Q4H PRN PRN Reason: Indigestion Albuterol/Ipratropium (Duoneb) 3 ml NEB [id number] PRN PRN Reason: SHORTNESS OF BREATH Albuterol/Ipratropium (Duoneb) 3 ml NEB [id number] [facility] Last Admin: 01/12/20 13:23 Dose: 3 ml Aspirin (Ecotrin) 81 mg PO DAILY [facility] Last Admin: 01/12/20 09:12 Dose: 81 mg Atorvastatin Calcium (Lipitor) 40 mg PO HS [facility] Last Admin: 01/11/20 19:46 Dose: 40 mg Bisacodyl (Dulcolax) 10 mg PO Q12H PRN PRN Reason: Constipation Bisacodyl (Dulcolax) 10 mg MD Q12H PRN PRN Reason: Constipation Colchicine (Colchicine) 0.3 mg PO BID [facility] Last Admin: 01/12/20 09:12 Dose: 0.3 mg Diphenhydramine HCl (Benadryl) 25 mg PO Q6H PRN PRN Reason: Itching & Insomnia or Bandar Mick Guaifenesin/Dextromethorphan (Robitussin Dm) 15 ml PO Q4H PRN PRN Reason: Cough Hydralazine HCl (Apresoline) 10 mg SLOW IVP Q6H PRN PRN Reason: To Maintain SBP< 140mmHG Last Admin: 01/10/20 20:45 Dose: 10 mg Lisinopril (Zestril) 5 mg PO DAILY [facility] Last Admin: 01/12/20 09:12 Dose: 5 mg Magnesium Hydroxide (Milk Of Magnesium) 30 ml PO Q12H PRN PRN Reason: Constipation Metoprolol Tartrate (Lopressor) 50 mg PO BID [facility] Last Admin: 01/12/20 09:12 Dose: 50 mg Mineral Oil (Fleet Mineral Oil) 133 ml MD DAILYPRN PRN PRN Reason: Constipation Nitroglycerin (Nitrostat) 0.4 mg SL Q5MIN PRN PRN Reason: Chest Pain Ondansetron HCl (Zofran) 4 mg IVP Q6H PRN PRN Reason: Nausea/Vomiting Pantoprazole Sodium (Protonix) 40 mg PO DAILY [facility] Last Admin: 01/12/20 09:12 Dose: 40 mg Sodium Chloride (Flush - Normal Saline) 10 ml IVF PRN PRN PRN Reason: Saline Flush Tramadol HCl (Ultram) 50 mg PO Q6H PRN PRN Reason: Pain Last Admin: 01/09/20 20:41 Dose: 50 mg Tramadol HCl (Ultram) 100 mg PO Q6H PRN PRN Reason: Pain Last Admin: 01/12/20 16:15 Dose: 100 mg Zolpidem Tartrate (Ambien) 5 mg PO HSPRN PRN PRN Reason: Insomnia Vital Signs & Weight: Vital Signs Temp Pulse Pulse Pulse Resp BP BP 01/12/20 15:45 99 F 87 18 01/12/20 13:23 88 16 01/12/20 13:09 98.6 F 96 18 01/12/20 12:10 91 90 166/91 H 133/98 H 01/12/20 09:12 100 01/12/20 08:00 01/12/20 07:56 99.6 F 100 18 01/12/20 07:43 80 16 BP Pulse Ox Pulse Ox Pulse Ox 01/12/20 15:45 137/97 H 99 01/12/20 13:23 01/12/20 13:09 145/94 H 97 01/12/20 12:10 96 97 01/12/20 09:12 01/12/20 08:00 95 01/12/20 07:56 124/79 95 01/12/20 07:43 Weight 177 lb 3.2 oz - Physical Exam General: alert & oriented x3 HEENT: mucus membranes moist Neck: supple neck Cardiac: regular rate and rhythm Lungs: normal breath sounds Neuro: grossly intact Abdomen: active bowel sounds Extremities: no edema Skin: clear Musculoskeletal: no pain - Labs Result Diagrams: 01/10/20 04:00 01/10/20 04:00 Troponin/CKMB CK-MB (CK-2) 2.0 ng/mL (0-6.6) 01/05/20 12:49 Troponin I 0.050 ng/mL (< 0.028) H 01/05/20 19:59 - Telemetry Sinus rhythms and dysrhythmias: sinus rhythm - Assessment/Plan Assessment/Plan: 1. Multivessel CAD 2. S/P CABg 3. Severe s/p SAVR 4. HTN PLAN: - Continue to increase PT as tolerated. - ASA/Statin for life. - Will increase lisinopril to BID from once a day as his BP needs a little more control. - Continue current BB dose. - CT chest negative for any acute issues.
[2020-01-12] MEDS: Atorvastatin Calcium 40 MG TAB PO SCH (20:53)
[2020-01-13] MEDS: traMADol HCl 50 MG TAB PO PRN ×2 (04:30→09:25)
[2020-01-13] MEDS: Metoprolol Tartrate 50 MG TAB PO SCH (08:27)
[2020-01-13] MEDS: Colchicine 0.6 MG TAB PO SCH ×2 (08:29→20:21)
[2020-01-13] MEDS: Lisinopril 5 MG TAB PO SCH ×2 (08:29→20:22)
[2020-01-13] MEDS: Aspirin 81 mg Enteric Coated Tablet PO SCH (08:29)
[2020-01-13] MEDS ORDERED: Magnesium Citrate 300 ML BOT PO SCH (12:15)
[2020-01-13] MEDS ORDERED: Tamsulosin HCl 0.4 MG CAP PO SCH ×2 (12:30→21:00)
--- NOTE | 2020-01-13 17:28 | PDOC.HOSPP ---
- Subjective Encounter Date: 01/13/20 Subjective: Patient seen this morning. He was feeling constipated and was trying some prune juice and increased walking. Otherwise, no major complaints. - Objective Vital Signs & Weight: Vital Signs (12 hours) Temp Pulse Resp BP Pulse Ox 01/13/20 16:00 99.0 F 94 16 142/101 H 94 L 01/13/20 14:11 84 16 01/13/20 12:00 98.2 F 84 16 151/97 H 94 L 01/13/20 08:40 95 01/13/20 07:49 98.1 F 79 16 161/110 H 95 01/13/20 06:59 89 12 Weight Weight 176 lb 4.8 oz Most Recent Monitor Data Heart Rate from ECG 97 NIBP 109/80 NIBP BP-Mean 89 Respiration from ECG 18 SpO2 95 I&O: 01/12/20 01/13/20 01/14/20 06:59 06:59 06:59 Intake Total 1590 1180 Output Total 210 450 Balance 1380 730 Result Diagrams: 01/10/20 04:00 01/10/20 04:00 Hospitalist ROS - Medication Medications: Active Medications Generic Name Dose Route Start Last Admin Trade Name Freq PRN Reason Stop Dose Admin Acetaminophen 650 mg 01/09/20 11:41 01/10/20 08:09 Tylenol PO 650 mg Q6H PRN Administration Headache/Fever Or Mild Pain Albuterol/Ipratropium 3 ml 01/09/20 13:00 01/13/20 14:11 Duoneb NEB 3 ml [id number] RIKY Administration Aspirin 81 mg 01/06/20 09:00 01/13/20 08:29 Ecotrin PO 81 mg DAILY RIKY Administration Atorvastatin Calcium 40 mg 01/05/20 21:00 01/12/20 20:53 Lipitor PO 40 mg HS RIKY Administration Colchicine 0.3 mg 01/06/20 09:08 01/13/20 08:29 Colchicine PO 0.3 mg BID RIKY Administration Diphenhydramine HCl 25 mg 01/11/20 08:18 01/12/20 20:53 Benadryl PO 25 mg Q6H PRN Administration Itching & Insomnia or Bandar Mick Hydralazine HCl 10 mg 01/09/20 11:41 01/10/20 20:45 Apresoline SLOW IVP 10 mg Q6H PRN Administration To Maintain SBP< 140mmHG Lisinopril 5 mg 01/12/20 21:00 01/13/20 08:29 Zestril PO 5 mg BID RIKY Administration Pantoprazole Sodium 40 mg 01/11/20 09:00 01/13/20 08:27 Protonix PO 40 mg DAILY RIKY Administration Tramadol HCl 50 mg 01/09/20 11:41 01/09/20 20:41 Ultram PO 50 mg Q6H PRN Administration Pain Tramadol HCl 100 mg 01/09/20 11:41 01/13/20 09:25 Ultram PO 100 mg Q6H PRN Administration Pain - Exam General Appearance: NAD, awake alert Heart: RRR, no murmur, no gallops, no rubs, normal peripheral pulses Heart - other findings: Sternal wound looks healthy. Respiratory: CTAB, no wheezes, no rales, no ronchi, normal chest expansion, no tachypnea, normal percussion Gastrointestinal: soft, non-tender, non-distended, normal bowel sounds, no palpable masses, no hepatomegaly, no splenomegaly, no bruit Extremities: no cyanosis, no clubbing, no edema Skin: normal turgor Neurological: no focal deficits Musculoskeletal: normal tone, normal strength, no muscle wasting Psychiatric: normal affect, normal behavior, A&O x 3 Hosp A/P (1) Status post aorto-coronary artery bypass graft Code(s): Z95.1 - PRESENCE OF AORTOCORONARY BYPASS GRAFT Status: Acute (2) Status post aortic valve replacement with bioprosthetic valve Code(s): Z95.3 - PRESENCE OF XENOGENIC HEART VALVE Status: Acute (3) NSTEMI (non-ST elevated myocardial infarction) Code(s): I21.4 - NON-ST ELEVATION (NSTEMI) MYOCARDIAL INFARCTION Status: Acute (4) Aortic stenosis Code(s): I35.0 - NONRHEUMATIC AORTIC (VALVE) STENOSIS Status: Chronic (5) CAD (coronary artery disease) Code(s): I25.10 - ATHSCL HEART DISEASE OF [place] CORONARY ARTERY W/O ANG PCTRS Status: Chronic (6) HTN (hypertension) Code(s): I10 - ESSENTIAL (PRIMARY) HYPERTENSION Status: Chronic Qualifiers: Hypertension type: essential hypertension Qualified Code(s): I10 - Essential (primary) hypertension (7) Tobacco abuse Code(s): Z72.0 - TOBACCO USE Status: Chronic (8) Constipation Code(s): K59.00 - CONSTIPATION, UNSPECIFIED Status: Acute - Plan Patient is doing extremely well. Followed by CV surgery and cardiology. Defer primary treatment plan to those services. Blood pressure is generally well controlled. Blood sugars well controlled. Encourage patient to continue using the incentive spirometer and ambulating as tolerated. Followed up this afternoon and Dr. Benjamin has added meds for constipation. Anticipate success with these and likely DC in am.
--- NOTE | 2020-01-13 17:54 | PDOC.CPN ---
- Subjective Date: 01/13/20 Time: 17:52 Interval history: No new issues. Passing gas but no BM. Working with PT. - Review of Systems General: denies: fever/chills, weight/appetite/sleep changes, night sweats, fatigue Respiratory: denies: cough, congestion, shortness of breath, exercise intolerance Cardiovascular: denies: chest pain, palpitation, edema, paroxysmal nocturnal dyspnea, orthopnea Gastrointestinal: denies: nausea, vomiting, diarrhea, constipation, abd pain, GI bleeding Musculoskeletal: denies: pain, tenderness, stiffness, swelling, arthritis/ arthralgias Neurological: denies: numbness, syncope, seizure, weakness - Objective Allergies/Adverse Reactions: Allergies Allergy/AdvReac Type Severity Reaction Status Date / Time No Known Drug Allergies Allergy Verified 01/07/20 08:25 Visit Medications: Current Medications Acetaminophen (Tylenol) 650 mg PO Q6H PRN PRN Reason: Headache/Fever Or Mild Pain Last Admin: 01/10/20 08:09 Dose: 650 mg Al Hydroxide/Mg Hydroxide (Maalox) 30 ml PO Q4H PRN PRN Reason: Indigestion Albuterol/Ipratropium (Duoneb) 3 ml NEB [id number] PRN PRN Reason: SHORTNESS OF BREATH Albuterol/Ipratropium (Duoneb) 3 ml NEB [id number] [facility] Last Admin: 01/13/20 14:11 Dose: 3 ml Aspirin (Ecotrin) 81 mg PO DAILY [facility] Last Admin: 01/13/20 08:29 Dose: 81 mg Atorvastatin Calcium (Lipitor) 40 mg PO HS [facility] Last Admin: 01/12/20 20:53 Dose: 40 mg Bisacodyl (Dulcolax) 10 mg PO Q12H PRN PRN Reason: Constipation Bisacodyl (Dulcolax) 10 mg [place] Q12H PRN PRN Reason: Constipation Colchicine (Colchicine) 0.3 mg PO BID [facility] Last Admin: 01/13/20 08:29 Dose: 0.3 mg Diphenhydramine HCl (Benadryl) 25 mg PO Q6H PRN PRN Reason: Itching & Insomnia or Bandar Mcik Last Admin: 01/12/20 20:53 Dose: 25 mg Guaifenesin/Dextromethorphan (Robitussin Dm) 15 ml PO Q4H PRN PRN Reason: Cough Hydralazine HCl (Apresoline) 10 mg SLOW IVP Q6H PRN PRN Reason: To Maintain SBP< 140mmHG Last Admin: 01/10/20 20:45 Dose: 10 mg Lisinopril (Zestril) 5 mg PO BID [facility] Last Admin: 01/13/20 08:29 Dose: 5 mg Magnesium Hydroxide (Milk Of Magnesium) 30 ml PO Q12H PRN PRN Reason: Constipation Metoprolol Tartrate (Lopressor) 100 mg PO BID [facility] Mineral Oil (Fleet Mineral Oil) 133 ml [place] DAILYPRN PRN PRN Reason: Constipation Nitroglycerin (Nitrostat) 0.4 mg SL Q5MIN PRN PRN Reason: Chest Pain Ondansetron HCl (Zofran) 4 mg IVP Q6H PRN PRN Reason: Nausea/Vomiting Pantoprazole Sodium (Protonix) 40 mg PO DAILY [facility] Last Admin: 01/13/20 08:27 Dose: 40 mg Sodium Chloride (Flush - Normal Saline) 10 ml IVF PRN PRN PRN Reason: Saline Flush Tamsulosin HCl (Flomax) 0.4 mg PO HS [facility] Tramadol HCl (Ultram) 50 mg PO Q6H PRN PRN Reason: Pain Last Admin: 01/09/20 20:41 Dose: 50 mg Tramadol HCl (Ultram) 100 mg PO Q6H PRN PRN Reason: Pain Last Admin: 01/13/20 09:25 Dose: 100 mg Zolpidem Tartrate (Ambien) 5 mg PO HSPRN PRN PRN Reason: Insomnia Vital Signs & Weight: Vital Signs Temp Pulse Resp BP Pulse Ox 01/13/20 16:00 99.0 F 94 16 142/101 H 94 L 01/13/20 14:11 84 16 01/13/20 12:00 98.2 F 84 16 151/97 H 94 L 01/13/20 08:40 95 01/13/20 07:49 98.1 F 79 16 161/110 H 95 01/13/20 06:59 89 12 Weight 176 lb 4.8 oz - Physical Exam General: alert & oriented x3 HEENT: mucus membranes moist Neck: supple neck Cardiac: regular rate and rhythm Lungs: clear to auscultation Neuro: grossly intact Abdomen: active bowel sounds Extremities: no edema Skin: clear Musculoskeletal: no pain - Labs Result Diagrams: 01/10/20 04:00 01/10/20 04:00 Troponin/CKMB CK-MB (CK-2) 2.0 ng/mL (0-6.6) 01/05/20 12:49 Troponin I 0.050 ng/mL (< 0.028) H 01/05/20 19:59 - Telemetry Sinus rhythms and dysrhythmias: sinus rhythm - Assessment/Plan Assessment/Plan: 1. Multivessel CAD 2. S/P CABG 3. Severe s/p SAVR 4. HTN PLAN: - Continue to increase PT as tolerated. - ASA/Statin for life. - Will increase lisinopril to 10 mg BID. - Continue current BB dose. - CT chest negative for any acute issues.
[2020-01-13] MEDS: Atorvastatin Calcium 40 MG TAB PO SCH (20:21)
[2020-01-13] MEDS: Metoprolol Tartrate 100 MG TAB PO SCH (20:21)
[2020-01-14] MEDS: traMADol HCl 50 MG TAB PO PRN ×2 (00:13→10:10)
[2020-01-14] MEDS ORDERED: Magnesium Citrate 300 ML BOT PO SCH (06:15)
[2020-01-14] MEDS: Lisinopril 5 MG TAB PO SCH (10:07)
--- NOTE | 2020-01-14 10:07 | PRG ---
DATE OF SERVICE: 01/14/2020 SUBJECTIVE: Mr. Braxton states he feels much better, just had a large bowel movement. OBJECTIVE: VITAL SIGNS: Blood pressure 130/80, pulse is 90 and it is regular. LUNGS: Clear. CARDIAC: Normal S1 and normal S2. ABDOMEN: Soft and nontender. ASSESSMENT: 1. Status post coronary artery bypass grafting and aortic valve replacement. 2. History of hyperkalemia. 3. Hypertension, improved. PLAN: 1. He is on metoprolol tartrate 100 mg twice a day. 2. Lisinopril 10 mg twice a day. 3. Aspirin 81 mg a day. 4. Lipitor 40 mg a day. 5. I will ask him to see us in the office in about a month and will also be seeing Dr. Silver as an outpatient. Job ID: [id number]
[2020-01-14] MEDS: Aspirin 81 mg Enteric Coated Tablet PO SCH (10:10)
[2020-01-14] MEDS: Metoprolol Tartrate 100 MG TAB PO SCH (10:10)
[2020-01-14] MEDS: Colchicine 0.6 MG TAB PO SCH (10:11)
[2020-01-14 17:13] VITALS: BP 130/88; TEMP 99.5
--- NOTE | 2020-01-15 03:56 | DIS ---
DATE OF ADMISSION: 01/05/2020 DATE OF DISCHARGE: 01/14/2020 DIAGNOSES: 1. Aortic stenosis. 2. Coronary artery disease. 3. Hypertension. 4. Dyslipidemia. 5. History of tobacco abuse. PROCEDURES: 1. Aortic valve replacement with #23 Inspiris bioprosthetic valve. 2. Coronary artery bypass grafting x3-left internal mammary artery to left anterior descending, reverse saphenous vein to obtuse marginal, and reverse saphenous vein to diagonal. 3. Ligation of left atrial appendage. DESCRIPTION OF HOSPITAL STAY: Mr. Braxton is a 75-year-old gentleman who was admitted with history of chest pain and severe shortness of breath. Workup included echocardiogram and cardiac catheterization revealing severe 3-vessel disease with severe aortic stenosis. He was taken to the operating room and underwent aortic valve replacement and coronary artery bypass grafting as above on 01/08. Postoperatively, he has done well. He has had no rhythm disturbances. At the time of discharge, he is ambulatory, tolerating regular diet, having good bowel and bladder function. Incisions are clean and dry without evidence of infection. DISCHARGE MEDICATIONS: 1. Aspirin 81 mg daily. 2. Lipitor 40 mg at bedtime. 3. Colchicine 0.3 mg b.i.d. 4. Lisinopril 10 mg b.i.d. 5. Lopressor 100 mg b.i.d. 6. Flomax 0.4 mg at bedtime. FOLLOWUP: With me in 2 weeks, [address]. Arrington in a month. Job ID: [id number]
--- NOTE | 2020-01-15 04:03 | PQF ---
CLINICAL DOCUMENTATION CLARIFICATION FORM: Dear : Nam Silver Date / Time: 01/15/20 Please exercise your independent, professional judgment in responding to the clarification form. Clinical indicators are provided on the bottom of this form for your review Please check appropriate box(es): [ ] Pneumothorax is a Postoperative complication of CABG [ ] Pneumothorax is not a Postoperative complication of CABG [ ] Other diagnosis [ ] Unable to determine Physician Signature: Date/Time: For continuity of documentation, please document condition throughout progress notes and discharge summary. Thank You. To be completed by CDI/Coding staff for physician review: Present Clinical Indicators - Signs / Symptoms / Labs Results and Location in Medical Record [X] BP 115/48, Pulse 107, Resp 25 Vital signs 10/09 [X] Chest X-ray Impression: Large Left pneumothorax Imaging Dr Moseley 01/08 [X] s/p CABG with Aortic valve replacement Operative report 01/08 Dr Silver [X] Pt returned from operative room and was found on Chest x-ray to have a left pneumothorax Operative report 01/08 Dr Silver [X] Left Pneumothorax post CABG Operative report 01/08 Dr Silver Present Risk Factors Results and Location in Medical Record [X] 75 year-old Male H&P p1 01/04 Dr Fuentes [X] HTN H&P p1 01/04 Dr Fuentes [X] Smoker H&P p1 01/04 Dr Fuentes [X] NSTEMI Operative report 01/08 Dr Silver [X] CAD Operative report 01/08 Dr Silver [X] Aortic stenosis Operative report 01/08 Dr Silver [X] s/p CABG PN 01/13 Present Treatments Results and Location in Medical Record [X] Bipap Respiratory Panel 01/08 [X] Chest tube placement Operative report 01/08 Dr Silver [X] Chest X-ray Imaging Dr Moseley 01/08 [X] IVF MAR 01/08 CDS/Parasitologist Signature: Anai Morgan Phone #: [phone] Date/Time: 01/15/20 This is a permanent part of the Medical Record [facility]
== END 2020-01-14 18:10 | disposition home health service (06) | DRG 216 ==
LOC: ERS 11:57 → 2NO 14:38 → OBSVTOIN 14:38 → CCU 01-09 08:25 → 2NO 01-11 16:41
PROVIDERS: ADMIT Internal Medicine; ATTEND Internal Medicine
PROC: 4A023N7 Measurement of Cardiac Sampling and Pressure, Left Heart, Percutaneous Approach (ICD-10-PCS; 2020-01-07)
PROC: B2111ZZ Fluoroscopy of Multiple Coronary Arteries using Low Osmolar Contrast (ICD-10-PCS; 2020-01-07)
PROC: B2151ZZ Fluoroscopy of Left Heart using Low Osmolar Contrast (ICD-10-PCS; 2020-01-07)
PROC: B2181ZZ Fluoroscopy of Left Internal Mammary Bypass Graft using Low Osmolar Contrast (ICD-10-PCS; 2020-01-07)
PROC: 02RF08Z Replacement of Aortic Valve with Zooplastic Tissue, Open Approach (ICD-10-PCS; principal; 2020-01-09)
PROC: 021109W Bypass Coronary Artery, Two Arteries from Aorta with Autologous Venous Tissue, Open Approach (ICD-10-PCS; 2020-01-09)
PROC: 02100Z9 Bypass Coronary Artery, One Artery from Left Internal Mammary, Open Approach (ICD-10-PCS; 2020-01-09)
PROC: 06BQ4ZZ Excision of Left Saphenous Vein, Percutaneous Endoscopic Approach (ICD-10-PCS; 2020-01-09)
PROC: 5A1221Z Performance of Cardiac Output, Continuous (ICD-10-PCS; 2020-01-09)
PROC: 02L70ZK Occlusion of Left Atrial Appendage, Open Approach (ICD-10-PCS; 2020-01-09)
PROC: B24BZZ4 Ultrasonography of Heart with Aorta, Transesophageal (ICD-10-PCS; 2020-01-09)
PROC: 0W9B30Z Drainage of Left Pleural Cavity with Drainage Device, Percutaneous Approach (ICD-10-PCS; 2020-01-09)
DX: I35.0 Nonrheumatic aortic (valve) stenosis (principal); I21.A1 Myocardial infarction type 2; J93.9 Pneumothorax, unspecified; Z20.828 Contact with and (suspected) exposure to other viral communicable diseases; I10 Essential (primary) hypertension; F17.210 Nicotine dependence, cigarettes, uncomplicated; I25.10 Atherosclerotic heart disease of native coronary artery without angina pectoris; Z91.19 Patient's noncompliance with other medical treatment and regimen; K59.00 Constipation, unspecified
CPT/HCPCS: 36415; 36416; 36430; 71045; 71275; 76942; 80048; 80053; 82553; 82805; 83880; 84484; 85025; 85610; 85730; 86850; 86900; 86901; 93005; 93010; 93306; 93458; 93798; 93880; 94640; 94660; 94760; 96360; 99152; J0171; J0360; J0690; J1642; J1644; J1650; J1815; J1885; J2001; J2250; J2405; J2440; J2720; J3010; J3370; J3475; J3480; J7512; J7620; P9045; Q0163; Q9967; S0017; S0020; S0028; U0002